=== PATIENT | male | born 1960 | race Caucasian/White ===

== ENCOUNTER 2020-02-29 16:00 | Outpatient (RCR) | payer MEDICAID, SELFPAY ==
--- NOTE | 2020-03-01 12:53 | MHC.PT.DC ---
[facility] [place] [facility] [place] [facility] [place] [facility] [address] Brittny Rome 140 [facility] [phone] F: [phone] F: [phone] F: [phone] F: [phone] Physical Therapy Discharge Report Diagnosis: rotator cuff repair Date of Surgery: 11/08/19 Date of Evaluation: 12/07/19 Date of Discharge: 03/01/20 Treatments to Date: 21 Cancellations to Date: 1 No Shows to Date: 0 Discharge Status: Improved Function Independent with HEP Discharge Summary: The patient has improved in his pain severity and range of motion. He has functional flexion and abduction with occasional compensation with fatigue. Otherwise, he has excellent carryover with cueing for periscapular activation and upper trapezius inhibition. He has progressed as expected regarding his strengthening program. He was educated regarding a safe return to gym program and to avoid heavy overhead lifting to protect the surgical site. He is discharged from this physical therapy plan of care to his home exercise program. Electronically signed by: Kylah Morrow PT, DPT Please sign and return to therapist. Thank you for your referral.
== END 2020-03-01 12:54 | disposition other institution (70) ==
LOC: HO.PT 16:00
PROVIDERS: PCP Family Medicine; Visit Provider Physician Assistant
DX: Z47.89 Encounter for other orthopedic aftercare (principal); Z98.890 Other specified postprocedural states
CPT/HCPCS: 97110; 97530; 99213

== ENCOUNTER → 2020-03-07 12:41 | Outpatient (BNVA) | payer MEDICAID, SELFPAY | PROVIDERS: PCP Family Medicine; Referring Provider Family Medicine; Visit Provider Orthopaedic Surgery | DX: S46.011D Strain of muscle(s) and tendon(s) of the rotator cuff of right shoulder, subsequent encounter (principal) | CPT/HCPCS: 99212 ==

== ENCOUNTER 2020-04-08 08:32 | Emergency (ER) | payer MEDICAID, SELFPAY ==
[2020-04-08 08:37] VITALS: BP 130/80; PULSE 89; RESP 18; TEMP 37.2; O2SAT 98; BMI 31.7
--- NOTE | 2020-04-08 08:48 | XR_ITS ---
EXAMINATION: XR CHEST CLINICAL INFORMATION: Cough, fever COMPARISON: None TECHNIQUE: Portable upright AP view of the chest was obtained. FINDINGS: The heart is normal in size. The vascularity is normal. There is no vascular congestion, lobar or segmental airspace consolidation, or definite groundglass opacity. The costophrenic sulci are clear. The hilar and mediastinal contours are normal. There are mild degenerative changes mid to lower thoracic spine and shoulders. There is a nodular density overlying the mid right base 0.9 cm which may be related to a nipple shadow. Recommend repeat view with nipple markers to confirm. XR/XR chest 1V IMPRESSION: 1. No vascular congestion, airspace consolidation, or effusion. 2. Nodular density right base, possibly nipple shadow. Recommend repeat view with nipple markers.
--- NOTE | 2020-04-08 09:15 | ED.URI ---
HPI - URI/Sore Throat General Chief Complaint: Upper Respiratory Symptoms Stated Complaint: BODYACHES,HEADACHE,COUGHING Time Seen by Provider: 04/08/20 08:48 Source: patient Mode of arrival: ambulatory Limitations: no limitations History of Present Illness HPI Narrative: 59-year-old male with a past medical history of insulin-dependent diabetic here with cough, body aches, chills, headache, nasal congestion x5 days. No shortness of breath or chest pain or vomiting or diarrhea. MD elicited complaint: cough and nasal congestion Onset (ago): day(s) Consistency: constant Severity: mild Description of mucous: clear Able to tolerate fluids by mouth: Yes Exacerbating factors: nothing Relieving factors: nothing Associated symptoms: chills, myalgias, headache, nasal congestion and cough Treatments prior to arrival: none Related Data Home Medications Medication Instructions Recorded Confirmed aspirin 81 mg tablet,delayed 81 mg PO DAILY 02/08/20 release metformin 500 mg tablet 500 mg PO DAILY 02/08/20 Previous Rx's Medication Instructions Recorded levofloxacin 750 mg PO DAILY 5 Days #5 tab 04/08/20 Allergies Allergy/AdvReac Type Severity Reaction Status Date / Time azithromycin Allergy Severe LIP Verified 03/07/20 12:52 [From ZITHROMAX Z-ZENA] SWELLING YELENA Inhibitors Allergy Unknown facial Uncoded 12/27/19 00:00 swelling Review of Systems Review of Systems: Yes all other systems are reviewed and are negative Constitutional: Constitutional: Reports no additional constitutional complaints, Reports body ache(s), Reports chills, Denies fever(s), Reports headache(s) and Denies weakness Eyes: Eyes: Reports no additional eye complaints and Denies change in vision ENT: Reports system reviewed and no additional complaints, except as documented, Denies dizziness, Reports headache(s), Reports nasal congestion, Denies nasal discharge, Denies neck pain and Reports sore throat Cardiovascular: Cardiovascular: Reports no additional cardiovascular complaints, Denies chest pain, Denies leg edema and Denies dyspnea Respiratory: Respiratory: Reports no additional respiratory complaints, Reports cough and Denies dyspnea Gastrointestinal: Gastrointestinal: Reports no additional gastrointestinal complaints, Denies abdominal pain, Denies diarrhea, Denies nausea and Denies vomiting Genitourinary: Genitourinary: Denies urinary incontinence Musculoskeletal: Musculoskeletal: Reports no additional musculoskeletal complaints, Denies back pain, Denies arthralgias, Denies joint swelling, Denies neck pain, Denies numbness and Denies tingling Integumentary/Breasts: Skin/Breast: Reports system reviewed and no additional complaints, except as docu and Denies rash Neurologic: Reports system reviewed and no additional complaints, except as documented, Denies Abnormal speech present, Denies dizziness, Reports headache(s), Denies numbness, Denies tingling and Denies weakness PMFSH Past Medical History Attestation statement: The following information was validated with the patient. Source: old records reviewed and nursing notes reviewed Surgical History History of repair of right rotator cuff (~11/08/19) Social History Social History Smoking Status: Never smoker Advance Directives: Yes Advance Directives on File: Yes Advance Directives Date on File: 02/08/20 Current occupational status: employed Current occupation: [employer] Physical Exam Vital Signs: Vital Signs: Last Vital Signs Temp 99.0 F 04/08/20 08:37 Pulse 89 04/08/20 08:37 Resp 18 04/08/20 08:37 BP 130/80 04/08/20 08:37 Pulse Ox 98 04/08/20 08:37 Body Mass Index 31.7 Const: General: cooperative, healthy appearing, comfortable and no acute distress Orientation/consciousness: patient oriented x3 Limitations: no limitations HENMT: Head: Yes normal to inspection Ears: hearing grossly normal bilaterally General nose exam: Normal external nose present Face and sinus: Yes normal facial exam Mouth: Normal oral and palatal mucosa present Throat: Yes posterior oropharynx normal Eyes: General: appearance normal, both eyes and all related structures Pupils: Equal, round and reactive pupils present Neck: Neck: Yes normal visual inspection Chest: Chest palpation & inspection: normal inspection of the chest Resp: Effort & Inspection: normal respiratory effort Auscultation: clear to auscultation bilaterally Cardio: Rate: regular rate Rhythm: regular rhythm Peripheral pulses: Peripheral pulses 2+ throughout GI: Inspection: Yes normal to inspection Palpation (GI): Soft to palpation and nontender Auscultation: normal bowel sounds Back/Spine/Pelvis: Thoracic/Lumbar Spine: thoracic and lumbar spine normal to inspection Skin: General skin exam: no rashes or lesions noted Neuro: General: patient oriented x3, no focal motor deficits and normal sensation to monofilament Cranial nerves: Yes Equal, round and reactive pupils present Cognition (Neuro): normal cognition Speech: No Abnormal speech present Gait exam (Neuro): Normal gait present Motor exam (neuro): 5/5 motor strength present throughout Extrem: General: Yes normal to inspection Course Course Course Narrative: 59-year-old male here with flu-like symptoms for 5 days. stable vital signs. Will check COVID / flu swab. Will check chest x-ray. 1040- COVID positive. Chest x-ray shows an incidental finding of a potential right lung nodule. Patient was made aware of this and instructed to follow-up with his primary care doctor. Stable saturations, afebrile and well-appearing. Reviewed worrisome signs and symptoms and when to return to the emergency department. Comfortable with discharge home. MDM - URI/Sore Throat MDM Narrative Medical decision making narrative: viral syndrome, COVID-19 infection, influenza, pneumonia Medical Records Attestation: I reviewed the patient's medical records. Lab Data Labs: Lab Results 04/08/20 Range/Units 09:16 Coronavirus (PCR) POSITIVE A (Negative) Influenza Type A (PCR) NEGATIVE (Negative) Influenza Type B (PCR) NEGATIVE (Negative) RSV RNA Qual (PCR) NEGATIVE (Negative) Imaging Data Chest x-ray: Attestation: I personally reviewed and interpreted this imaging study as follows: Radiologist's impression: [place] [id number] XRay Report Signed Patient: Suhas Reynaga#: [id number] : 1Acct:[id number] Age/Sex: 59 / MADM Date: 04/08/20 Loc: HO.ED Attending Dr: Ordering Physician: ARA QURESHI NP Date of Service: 04/08/20 Procedure(s): XR chest 1V Accession Number(s): [id number] cc: ARA QURESHI NP~ EXAMINATION: XR CHEST CLINICAL INFORMATION: Question nodule right base on chest radiograph performed for cough, fever. Repeat view with nipple marker. COMPARISON: Chest radiographs 04/08/2020, CT abdomen 07/07/2017, chest radiographs 06/05/2010 TECHNIQUE: Portable upright AP view of the chest is performed with right nipple marker. FINDINGS: There is a nodular density right base adjacent to coarsening bronchovascular marking not related to the nipple measuring 6 x 7 mm. In retrospect, similar finding is questionably suggested on frontal chest radiograph 06/05/2010. XR/XR chest 1V IMPRESSION: 1. Nodular density not related to nipple right base 6 x 7 mm with smooth margins. Finding is questionably suggested on frontal chest 2010. 2. Suggest nonemergent outpatient noncontrast CT chest to fully characterize. Discharge Plan Discharge Clinical Impression: COVID-19, Bronchitis Patient Disposition: Home, Self-Care Instructions: Acute Bronchitis (ED), COVID-19 (Coronavirus Disease 2019) (ED) Additional Instructions: We have tested you today for COVID 19. Test results take 1-2 days and we will call you with the results negative or positive. Take tylenol or motrin if able as needed for pain or fever. Stay well hydrated with fluids like water, gatorade and/or powerade. Wash hands at home. If living with others try to self isolate if possible. If unable wear a mask around others in your home and wash hands frequently. If COVID test is positive you will need to self isolate for a total of 14 days from when your symptoms started. You may return to work sooner if testing is negative and all symptoms resolved >72 hours. You should return to the emergency department for severe shortness of breath, chest pain or fever which does not respond to both tylenol and motrin at home. Prescriptions: New levofloxacin 750 mg tablet 750 mg PO DAILY 5 Days Qty: 5 RF: 0 Referrals: Ritu Bardales MD [Primary Care Provider] - 2 days Stand Alone Forms: Work/School Release Interventions: ED Discharge Assessment Last Done: 04/08/20 10:29 Discharge Date/Time: 04/08/20 10:29
--- NOTE | 2020-04-08 09:30 | XR_ITS ---
EXAMINATION: XR CHEST CLINICAL INFORMATION: Question nodule right base on chest radiograph performed for cough, fever. Repeat view with nipple marker. COMPARISON: Chest radiographs 04/08/2020, CT abdomen 07/07/2017, chest radiographs 06/05/2010 TECHNIQUE: Portable upright AP view of the chest is performed with right nipple marker. FINDINGS: There is a nodular density right base adjacent to coarsening bronchovascular marking not related to the nipple measuring 6 x 7 mm. In retrospect, similar finding is questionably suggested on frontal chest radiograph 06/05/2010. XR/XR chest 1V IMPRESSION: 1. Nodular density not related to nipple right base 6 x 7 mm with smooth margins. Finding is questionably suggested on frontal chest 2010. 2. Suggest nonemergent outpatient noncontrast CT chest to fully characterize.
[2020-04-08 10:05] LABS: Influenza A PCR NEGATIVE (Negative); Influenza B PCR NEGATIVE (Negative); Resp Syncy Virus RNA Qual PCR NEGATIVE (Negative); SARS COV2 PCR INHOUSE POSITIVE (Negative)
== END 2020-04-08 10:29 | disposition home or self-care (01) ==
PROVIDERS: Nurse Practitioner Family; Emergency Provider Internal Medicine; PCP Family Medicine
DX: U07.1 COVID-19 (principal); J40 Bronchitis, not specified as acute or chronic; M79.10 Myalgia, unspecified site; R05 Cough; R51.9 Headache, unspecified; Z79.899 Other long term (current) drug therapy
CPT/HCPCS: 0241U; 71045; 99283

== ENCOUNTER 2020-12-19 13:58 | Outpatient (REF) | payer MEDICAID, SELFPAY | END 2020-12-19 13:59 | disposition home or self-care (01) | LOC: HO.LAB 13:58 | PROVIDERS: PCP Family Medicine; Visit Provider Internal Medicine | DX: Z20.822 Contact with and (suspected) exposure to COVID-19 (principal) | CPT/HCPCS: C9803; U0003; U0005 ==

== ENCOUNTER → 2021-08-28 13:58 | Outpatient (BNVA) | payer MEDICAID, SELFPAY | PROVIDERS: PCP Family Medicine; Referring Provider Family Medicine; Visit Provider Physician Assistant | DX: Z12.11 Encounter for screening for malignant neoplasm of colon (principal) | CPT/HCPCS: 99202 ==

== ENCOUNTER 2021-12-15 09:25 | Day surgery (SDC) | payer MEDICAID, SELFPAY ==
[2021-12-09 19:34] VITALS: BMI 31.0
--- NOTE | 2021-12-12 10:05 | P.CONAN_ITS ---
Documented by User: Denise Storm NP 12/12/21 10:05 HPI - Anesthesia Eval Consult details Narrative: 60yo M for Colonoscopy PMFSH Active Problems Active Problems: All Active Problems (Updated 12/09/21 @ 19:34 by Lanie Rodriguez RN) S/P rotator cuff repair (Acute) COVID-19 (Acute) Encounter for screening colonoscopy (Acute) Past Medical History Medical History Back pain Diabetes Elevated cholesterol Hypertension Family History Family History Father Diabetes Heart disease Stroke Mother Asthma attack Surgical History Surgical History H/O hand surgery History of esophagogastroduodenoscopy (EGD) History of repair of right rotator cuff (~11/08/19) Hx of colonoscopy Social History Social History Household Members Other:: single Patient Tobacco Use Status: Former Tobacco user Use of substances other than those prescribed or required for medical reasons: No Are you DNR?: No Advance Directives: No Advance Directives Information Provided: Yes Advance Directives on File: No Advance Directives Date on File: 02/08/20 Recently lost weight without trying: No Nutrition Risks: No Nutritional Risk Current occupational status: employed Current occupation: [employer] Meds Allergies Allergy/AdvReac Type Severity Reaction Status Date / Time azithromycin Allergy Severe LIP Verified 08/28/21 14:03 [From ZITHROMAX Z-ZENA] SWELLING YELENA Inhibitors Allergy Unknown facial Uncoded 08/28/21 14:03 swelling Home Medications Medication Instructions Recorded Confirmed Last Taken Type aspirin 81 mg tablet,delayed 81 mg PO DAILY 02/08/20 12/09/21 Unknown History release metformin 500 mg tablet 500 mg PO DAILY 02/08/20 12/09/21 Unknown History amlodipine 5 mg tablet 1 tab PO DAILY 12/09/21 12/09/21 Unknown History atorvastatin 40 mg tablet 1 tab PO BEDTIME 12/09/21 12/09/21 Unknown History insulin glargine 100 unit/mL (3 14 unit subcut DAILY 12/09/21 12/09/21 Unknown History mL) subcutaneous pen (Lantus Solostar U-100 Insulin) Exam Exam Date and Time: December 12, 2021 1005 Height,Weight and Vital Signs: Height 5 ft 9 in Weight 95.254 kg Assessment and Plan Assessment Anesthesia Assessment: Chart Reviewed Documented by User: Tiarra Oconnell MD 12/15/21 11:24 [facility] Past Medical History Medical History Back pain Diabetes Elevated cholesterol Hypertension Family History Family History Father Diabetes Heart disease Stroke Mother Asthma attack Surgical History Surgical History H/O hand surgery History of esophagogastroduodenoscopy (EGD) History of repair of right rotator cuff (~11/08/19) Hx of colonoscopy History of Problems with Anesthesia: No Social History Social History Household Members Other:: single Patient Tobacco Use Status: Former Tobacco user Use of substances other than those prescribed or required for medical reasons: No Are you DNR?: No Advance Directives: No Advance Directives Information Provided: Yes Advance Directives on File: No Advance Directives Date on File: 02/08/20 Recently lost weight without trying: No Nutrition Risks: No Nutritional Risk Current occupational status: employed Current occupation: [employer] Meds Allergies Allergy/AdvReac Type Severity Reaction Status Date / Time azithromycin Allergy Severe LIP Verified 08/28/21 14:03 [From ZITHROMAX Z-ZENA] SWELLING YELENA Inhibitors Allergy Unknown facial Uncoded 08/28/21 14:03 swelling Home Medications Medication Instructions Recorded Confirmed Last Taken Type aspirin 81 mg tablet,delayed 81 mg PO DAILY 02/08/20 12/09/21 Unknown History release metformin 500 mg tablet 500 mg PO DAILY 02/08/20 12/09/21 Unknown History amlodipine 5 mg tablet 1 tab PO DAILY 12/09/21 12/09/21 Unknown History atorvastatin 40 mg tablet 1 tab PO BEDTIME 12/09/21 12/09/21 Unknown History insulin glargine 100 unit/mL (3 14 unit subcut DAILY 12/09/21 12/09/21 Unknown History mL) subcutaneous pen (Lantus Solostar U-100 Insulin) Exam Airway Mallampati Class: II TM Dist: >3cm Neck ROM: Full Loose/Missing/Broken Teeth: Yes, Upper and Lower Heart: RRR Lungs: CTA Assessment and Plan Assessment Anesthesia Assessment: Anesthesia Plan Discussed Final Anesthetic Review History of Problems with Anesthesia: No NPO: Yes ASA Class: II Final Preanesthetic Review: Meds/Allgs Chart Reviewed, Consent Obtained/Reviewed and Anes Risks/Benef Reviewed Patient Risk: Low Procedure Risk: Low Anesthetic Plan Anesthetic Plan: MAC: Disposition: Standard PACU
[2021-12-15 10:12] VITALS: BP 137/81; PULSE 67; RESP 18; TEMP 36.6; O2SAT 98
[2021-12-15 10:13] LABS: Glucose, Whole Blood 157 mg/dL (60-115)
[2021-12-15] MEDS: Lactated Ringers 1,000 ML 100 ML IVCONT (10:21)
--- NOTE | 2021-12-15 11:06 | MHC.SHP ---
Pre-Procedural Eval Section A Date of Service: 12/15/21 The patient is an INPATIENT: No The History & Physical has been completed within 30 days and I have reviewed it.: No Section B Chief Complaint: screening Details of Present Illness: Colon cancer screening Relevant Family History (Specify if Yes): No Relevant Social History: Tobacco Use (Former smoker) Present Medications: see Short Stay Collaborative assessment Medical History: Significant History (Hypertension, diabetes mellitus) History of Previous Operations: Relevant previous surgery/procedure and date(s) (H/O hand surgery History of esophagogastroduodenoscopy (EGD) History of repair of right rotator cuff (~11/08/19) Hx of colonoscopy) Allergies: Allergies Allergy/AdvReac Type Severity Reaction Status Date / Time azithromycin Allergy Severe LIP Verified 08/28/21 14:03 [From ZITHROMAX Z-ZENA] SWELLING YELENA Inhibitors Allergy Unknown facial Uncoded 08/28/21 14:03 swelling Review of Systems Sugical H&P ROS: Negative: Constitution, Cardiovascular, Respiratory and Gastrointestinal Exam Surgical H&P Exam: Normal: Heart, Normal: Lungs, Normal: Extremities and Normal: Abdomen Plan Diagnosis/Plan: Unchanged I have reviewed the history and physical and performed a pertinent physical examination on my patient. No changes have occurred unless specified.
--- NOTE | 2021-12-15 11:11 | W.PM.OPN ---
Operative Note Operative Note Date of Service: 12/15/21 Narrative: Pre-op diagnosis: Colon cancer screening, history of colon polyps Post-op diagnosis: other (Colon polyps, diverticulosis, hemorrhoids) Procedure: COLONOSCOPY TILL CECUM WITH BIOPSIES AND SNARE POLYPECTOMY Consent: Indications for the procedure and potential complications of bleeding, perforation, reaction to medications and missed diagnosis were discussed with the patient and informed consent was obtained. Instrument: Olympus CF H 190 L variable stiffness adult colonoscope Monitoring: Vital signs and clinical assessment, intermittent blood pressure monitoring, continuous EKG monitoring, Pulse oximetry and Carbon Dioxide monitoring were done throughout the procedure. Colon withdrawl time was 25 minutes. Procedure: The patient was placed in the left lateral decubitis position and pre-procedure medications were administered. After a digital rectal examination of the ano-rectum, the video colonoscope was inserted into the rectum and advanced through the colon to the cecum. The colonoscope was slowly withdrawn in a retrograde panoramic fashion and the colon mucosa was carefully examined including a retroflexed view of the rectum. Findings and interventions are described below. Procedure Difficulty: Without difficulty Findings: Terminal Ileum: Not evaluated Cecum: Normal Ascending Colon: Moderate diverticulosis throughout the entire colon Transverse Colon: Three 4-8 mm sessile polyps removed with a cold bx and a cold snare. Moderate diverticulosis throughout the entire colon Descending Colon: Moderate diverticulosis Sigmoid Colon: Moderate diverticulosis Rectum: Normal Ano-rectum: Moderate internal hemorrhoids Colon preparation: Excellent Impression and Post Procedure Diagnosis: Colonoscopy Findings: Three small polyps removed Moderate diverticulosis seen in the entire colon Moderate hemorrhoids on retroflexed exam. Plan: Await pathology results Patient has an appointment on 12/31/21 in the GI Clinic with BOWEN Tomlinson . Repeat Colonoscopy interval based on path results - in 3-5 years if polyps are adenomatous and 10 years if polyps are hyperplastic. Above findings were reviewed with the patient and colon polyps and diverticulosis handouts were given in the discharge area Surgeon: Edwina Sharma MD Anesthesia: MAC (Dr Oconnell) Was an [employer] Targeting Supervisor used for this Procedure?: Yes [employer] Targeting Supervisor: Cherry Irvin Estimated blood loss (mL): 0 Pathology: other (A. transverse colon polyps (3)) Condition: stable Disposition: PACU
[2021-12-15 11:51] VITALS: BP 102/62; PULSE 66; RESP 20; TEMP 36.4; O2SAT 99
[2021-12-15 12:06] VITALS: BP 104/59; PULSE 61; RESP 18; O2SAT 98
[2021-12-15 12:21] VITALS: BP 122/68; PULSE 46; RESP 18; O2SAT 98
[2021-12-15 12:36] VITALS: BP 124/64; PULSE 55; RESP 18; O2SAT 98
== END 2021-12-15 12:59 | disposition home or self-care (01) ==
PROVIDERS: PCP Family Medicine; Visit Provider Internal Medicine Gastroenterology
PROC: 0DJD8ZZ Inspection of Lower Intestinal Tract, Via Natural or Artificial Opening Endoscopic (ICD-10-PCS; CPT 45378; principal; 2021-12-15 11:40)
DX: Z12.11 Encounter for screening for malignant neoplasm of colon (principal); Z86.010 Personal history of colon polyps; D12.3 Benign neoplasm of transverse colon; K57.30 Diverticulosis of large intestine without perforation or abscess without bleeding; K64.8 Other hemorrhoids; I10 Essential (primary) hypertension; E78.00 Pure hypercholesterolemia, unspecified; E11.9 Type 2 diabetes mellitus without complications; Z79.4 Long term (current) use of insulin; Z79.82 Long term (current) use of aspirin; Z88.1 Allergy status to other antibiotic agents; Z88.8 Allergy status to other drugs, medicaments and biological substances; Z87.891 Personal history of nicotine dependence
CPT/HCPCS: 45385; 45380; 82947; 88305

== ENCOUNTER 2023-01-25 09:55 | Outpatient (REF) | payer MEDICAID, SELFPAY ==
--- NOTE | ~2023-01-25 | XR_ITS ---
EXAMINATION: XR SHOULDER, LEFT CLINICAL INFORMATION: Anterior left shoulder pain on and off for months COMPARISON: None available. TECHNIQUE: 5 views of the left shoulder. FINDINGS: Mild degenerative changes in the acromioclavicular joint. Mild degenerative changes in the glenohumeral joint. No abnormal soft tissue calcifications identified adjacent to the humeral head XR/XR shoulder LT min 2V IMPRESSION: Mild degenerative changes.
== END 2023-01-25 09:56 | disposition home or self-care (01) ==
LOC: HO.HHCX 09:55
PROVIDERS: Visit Provider Family Medicine
DX: M25.512 Pain in left shoulder (principal)
CPT/HCPCS: 73030

== ENCOUNTER 2023-03-19 09:13 | Outpatient (REF) | payer OTHER, SELFPAY | END 2023-03-19 09:14 | disposition home or self-care (01) | LOC: HO.HOSX 09:13 | PROVIDERS: PCP Family Medicine; Visit Provider Orthopaedic Surgery | DX: Z13.89 Encounter for screening for other disorder (principal) ==

== ENCOUNTER 2023-03-19 09:13 | Outpatient (AMB) | payer OTHER, SELFPAY ==
--- NOTE | 2023-03-19 09:22 | A.OFFVIS_ITS ---
Intake Vital Signs 03/19/23 09:23 Height 5 ft 9 in Weight 197 lb BMI 29.1 Intake Visit Reasons: Newprob-Left shoulder pain Intake Note: Suhas is a 62 year old right hand dominant male who presents today for a new problem visit with complaints of left shoulder pain. Hx of right RTC Repair 11/08/2019. Patient reports that he has had ongoing shoulder pain for about 2 months now. He cannot recall any direct injury. He is active in the gym. He has sharp pain with certain movements but cannot identify which movements trigger the pain. Denies numbness and tingling. He does not take anything for his pain. Has not tried physical therapy or cortisone. Allergies azithromycin [From ZITHROMAX Z-ZENA] Allergy (Severe, Verified 08/28/21 14:03) LIP SWELLING YELENA Inhibitors Allergy (Unknown, Uncoded 08/28/21 14:03) facial swelling HPI Newprob-Left shoulder pain HPI Details Suhas is a 62 year old Diabetic man who presents with complaints of ~2 months left shoulder pain. He reports having pain with shoulder movement, which he describes as sharp , and says he is unsure what exactly triggers his pain. He says this pain is similar to his right shoulder prior to surgery. He stays active at the gym several times a week. He says his pain somewhat affects his exercise activities, but he denies any increased pain at night. He denies any falls or known injury. He denies any prior treatment, including OTC medication. He has a hx of right RTC repair, DOS: 11/08/19. [facility] Medical History (Updated 03/19/23 @ 10:09 by Rashel Hinton) Back pain Diabetes Hypertension Elevated cholesterol Surgical History History of esophagogastroduodenoscopy (EGD) Hx of colonoscopy H/O hand surgery History of repair of right rotator cuff (~11/08/19) Family History Father Diabetes Heart disease Stroke Mother Asthma attack Social History Household Members Other:: single Patient Tobacco Use Status: Former Tobacco user Advance Directives Date on File: 02/08/20 Current occupational status: employed Current occupation: [employer]- [employer] Review of Systems Const All systems reviewed & are unremarkable except as noted in HPI and below Physical Exam Vital Signs: BMI result Body Mass Index 29.1 Const General: no acute distress, alert and awake Orientation/consciousness: patient oriented x3 HEENT Head: Yes normocephalic and Yes atraumatic Eyes EOM: EOMs intact bilaterally Resp Effort & Inspection: normal respiratory effort and able to speak in complete sentences Cardio Jugular venous distension: no JVD Skin General skin exam: turgor normal Rashes: no rashes Neuro General: patient oriented x3 Extrem Other: Left Shoulder: neg EC neg H/N 45/90/130/L5 neg lift off Psych Appearance: grossly normal Affect: normal affect Attitude: cooperative Results Reviewed Results Reviewed: I personally reviewed relevant radiographs Assessment & Plan Assessment & Plan (1) Impingement of left shoulder: Code(s): M25.812 - Other specified joint disorders, left shoulder Plan: This is a 62 year old man with left shoulder impingement. He has mild pain occasionally. He denies any prior treatment. He stays active at the gym and find s himself limited by pain recently. I discussed his diagnosis and treatment options. His pain is mostly tolerable and he is not particularly limited in his activities. I recommend NSAIDs and activity modification. I ordered PT for frannie- scapular strengthening and recommend using Ibuprofen at night. He can follow up prn. If his symptoms persist or worsen he can follow up to discuss injections. (2) Diabetes: Code(s): E11.9 - Type 2 diabetes mellitus without complications Plan Scribed for Richard Bernal MD by Rashel Hinton, medical office supervisor, on 03/19/23 at 10:10 AM, EST. Orders: Orders XR shoulder LT min 2V 03/19/23 M25.519 - Pain in unspecified shoulder Coding Level of Care Code Est Pt Level 3 (27587) Diagnoses Impingement of left shoulder M25.812 Diabetes E11.9
[2023-03-19 09:23] VITALS: BMI 29.1
== END 2023-03-19 10:14 | disposition home or self-care (01) ==
PROVIDERS: PCP Family Medicine; Visit Provider Orthopaedic Surgery
DX: M25.812 Other specified joint disorders, left shoulder (principal); E11.9 Type 2 diabetes mellitus without complications
CPT/HCPCS: 99213

== ENCOUNTER 2024-01-04 08:05 | Outpatient (REF) | payer OTHER, SELFPAY ==
[2024-01-04 11:57] LABS: Alanine Aminotransferase 13 U/L (0-40); Albumin Level 4.1 g/dL (3.5-5.0); Alkaline Phosphatase 49 U/L (39-117); Anion Gap 10 (12-20); Aspartate Amino Transferase 14 U/L (5-37); Bilirubin Direct 0.1 mg/dL (0.0-0.5); Bilirubin Total 0.4 mg/dL (0.0-1.0); Blood Urea Nitrogen 13 mg/dL (9-16); Calcium 9.5 mg/dL (8.4-10.2); Carbon Dioxide 28 mmol/L (22-29); Chloride 107 mmol/L (96-108); Cholesterol 195 mg/dL (<200); Estimated Glomerular Filt Rate > 60; Glucose Random 139 mg/dL (60-115); HDL Cholesterol 50 mg/dL (>40); LDL Cholesterol Calculated 123 mg/dL (<100); Potassium 4.1 mmol/L (3.3-5.1); Sodium 141 mmol/L (135-145); Total Protein 7.5 g/dL (6.5-8.0); Triglycerides 111 mg/dL (<150)
[2024-01-04 12:08] LABS: Creatinine Urine 197.57 mg/dL; Microalbum/Creatinine Ratio Ur 10.6 ug/mg cr (<30)
== END 2024-01-04 08:06 | disposition home or self-care (01) ==
LOC: HO.HHCL 08:05
PROVIDERS: Visit Provider Family Medicine
DX: E11.65 Type 2 diabetes mellitus with hyperglycemia (principal)
CPT/HCPCS: 36415; 80048; 80061; 80076; 82043; 82570

== ENCOUNTER 2024-02-25 08:09 | Outpatient (REF) | payer OTHER, SELFPAY ==
[2024-02-25 13:42] LABS: Alanine Aminotransferase 19 U/L (0-40); Alkaline Phosphatase 48 U/L (39-117); Aspartate Amino Transferase 17 U/L (5-37); Bilirubin Direct 0.2 mg/dL (0.0-0.5); Bilirubin Total 0.5 mg/dL (0.0-1.0); Cholesterol 174 mg/dL (<200); HDL Cholesterol 48 mg/dL (>40); LDL Cholesterol Calculated 108 mg/dL (<100); Total Protein 7.2 g/dL (6.5-8.0); Triglycerides 90 mg/dL (<150)
== END 2024-02-25 08:10 | disposition home or self-care (01) ==
LOC: HO.CHCLDS 08:09
PROVIDERS: Visit Provider Family Medicine
DX: E78.00 Pure hypercholesterolemia, unspecified (principal)
CPT/HCPCS: 36415; 80061; 80076

== ENCOUNTER 2024-04-26 11:06 | Outpatient (RCR) | payer OTHER, SELFPAY | END 2025-02-28 12:42 | disposition home or self-care (01) | LOC: HO.PT 11:06 | PROVIDERS: PCP Family Medicine; Visit Provider Family Medicine | DX: M54.50 Low back pain, unspecified (principal) | CPT/HCPCS: 97110; 97140; 97161 ==

== ENCOUNTER 2024-07-03 17:41 | Emergency (ER) | payer OTHER, SELFPAY ==
[2024-07-03 18:21] VITALS: BP 123/74; PULSE 64; RESP 16; TEMP 37.2; O2SAT 98; BMI 28.4
--- NOTE | 2024-07-03 18:23 | ECG_ITS ---
Test Reason : abnormal labs Blood Pressure : */* mmHG Vent. Rate : 56 BPM Atrial Rate : 56 BPM P-R Int : 140 ms QRS Dur : 92 ms QT Int : 398 ms P-R-T Axes : 67 10 27 degrees QTcB Int : 384 ms Sinus bradycardia with marked sinus arrhythmia Otherwise normal ECG No previous ECGs available Referred By: Natasha Dexter Electronically Signed By: GURMEET HEBERT
[2024-07-03 18:50] LABS: MANUAL DIFF FLAG NO
--- NOTE | 2024-07-03 18:50 | ED_ITS ---
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 the dose of metformin to 500 mg twice a day patient comes here now blood sugar was more than 300 today no fever no nausea no vomiting Related Data Home Medications ?Medication ?Instructions ?Recorded ?Confirmed metformin 500 mg tablet 500 mg PO DAILY 02/08/20 12/09/21 amlodipine 5 mg tablet 1 tab PO DAILY 12/09/21 12/09/21 atorvastatin 40 mg tablet 1 tab PO BEDTIME 12/09/21 12/09/21 dulaglutide 1.5 mg/0.5 mL mg subcut QWEEK 03/19/23 subcutaneous pen injector (Trulicity) emtricitabine 200 mg-tenofovir 1 tab PO QAM 03/19/23 alafenamide fumarate 25 mg tablet (Descovy) magnesium oxide 500 mg PO BEDTIME 03/19/23 Allergies Allergy/AdvReac Type Severity Reaction Status Date / Time azithromycin Allergy Severe LIP Verified 07/03/24 18:23 [From ZITHROMAX Z-ZENA] SWELLING YELENA Inhibitors Allergy Unknown facial Uncoded 08/28/21 14:03 swelling Review of Systems 2 Review of Systems: Yes all other systems are reviewed and are negative [facility] Past Medical History Medical History (Updated 07/03/24 @ 22:38 by Levi Alejandro MD) Back pain Diabetes Hypertension Elevated cholesterol Surgical History History of esophagogastroduodenoscopy (EGD) Hx of colonoscopy H/O hand surgery History of repair of right rotator cuff (~11/08/19) Family History Family History Father Diabetes Heart disease Stroke Mother Asthma attack Social History Social History Household Members Other:: single Patient Tobacco Use Status: Former Tobacco user Advance Directives: No Advance Directives Information Provided: No Advance Directives Date on File: 02/08/20 Current occupational status: employed Current occupation: [employer] Physical Exam ED Vital Signs: Vital Signs - 24 hr 07/03/24 18:21 Temperature 98.9 F Pulse Rate 64 Respiratory Rate 16 Blood Pressure 123/74 Pulse Oximetry 98 Oxygen Delivery Method Room Air BMI result Body Mass Index 28.4 Appearance: Alert. Oriented X3. No acute distress. Eyes: PERRLA, No Nystagmus ENT: Pharynx normal. Oral Mucosa moist Neck: Normal inspection. Neck supple. CVS: Normal heart rate and rhythm. Pulses normal. Respiratory: No respiratory distress. Equal air entry bilateral, no wheezing/rales/rhonchi Abdomen: Soft and nontender. Bowel sounds are present, no mass palpable, no CVA tenderness Skin: Skin warm and dry. Normal skin color. Normal skin turgor. Extremities: No lower extremity edema. No calf tenderness Neuro: Oriented X 3. No motor deficit. No sensory deficit.No cerebellar signs , cranial nerves II-XII intact Course Course Course Narrative: This is a Rapid Medical Examination (RME) performed by Faby Dexter PA-C in triage. Full HPI, ROS, assessment and treatment plan per primary provider in the Main ED. 63 yo male hx T2DM here for eval of elevated glucose > 450 at home. Patient states he was taken off insulin 1 year ago. Has been taking oral metformin. Reports associated headache, dizziness, weakness, palpitations. no N/V abd pain. 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 regarding the future course Lab Data [facility] Lab Attestation statement: I reviewed the patient's lab results. 07/03/24 18:45 02/24/25 18:45 Labs: Lab Results 07/03/24 07/03/24 07/03/24 Range/Units 18:39 18:45 18:53 WBC 6.2 (4.8-10.8) X10*3/uL RBC 4.43 L (4.60-5.80) X10*6/uL Hgb 12.6 L (14.0-18.0) g/dl Hct 35.8 L (42.0-52.0) % MCV 80.8 (80.0-98.0) fL MCH 28.4 (27.0-33.0) pg MCHC 35.2 (31.0-36.0) g/dl RDW 12.3 (11.0-16.0) % Plt Count 133 L (160-400) X10*3/uL MPV 11.5 (9.4-12.4) fL Immature Gran % (Auto) 0.2 (0.0-0.4) % Neut % (Auto) 55.8 (45-73) % Lymph % (Auto) 33.3 (20-40) % Young % (Auto) 7.8 (2-11) % Eos % (Auto) 2.3 (0-4) % Baso % (Auto) 0.6 (0-2) % Lymph # (Auto) 2.1 (1.2-4.9) X10*3/uL Young # (Auto) 0.5 (0.1-1.2) X10*3/uL Eos # (Auto) 0.1 (0.0-0.4) X10*3/uL Baso # (Auto) 0.0 (0.0-0.2) X10*3/uL Abs Immat Gran (auto) 0.01 (0.00-0.03) X10*3/uL Absolute Neuts (auto) 3.5 (2.0-8.3) x10*3/uL Absolute Nucleated RBC 0.000 (0.0-0.012) X10*3/uL Nucleated RBC % (auto) 0.0 (0.0-0.2) /100WBC VBG pH 7.42 (7.32-7.43) VBG pCO2 39 mmHg VBG pO2 52 mmHg VBG HCO3 26 (22-26) mmol/L VBG O2 Saturation 84.0 % VBG Base Excess 1.9 mmol/L Sodium 138 (135-145) mmol/L Potassium 4.0 (3.3-5.1) mmol/L Chloride 106 (96-108) mmol/L Carbon Dioxide 25 (22-29) mmol/L Anion Gap 11 L (12-20) BUN 16 (9-16) mg/dL Creatinine 1.31 (0.5-1.4) mg/dL Estim Creat Clear Calc 63.1 Estimated GFR 55 POC Glucose 313 H (60-115) mg/dL Random Glucose 311 H (60-115) mg/dL Calcium 9.1 (8.4-10.2) mg/dL Magnesium 1.6 (1.6-2.6) mg/dL Total Bilirubin 0.4 (0.0-1.0) mg/dL AST 20 (5-37) U/L ALT 20 (0-40) U/L Alkaline Phosphatase 68 (39-117) U/L Troponin I High Sens 3.2 (<3.5-35.0) ng/L Total Protein 7.6 (6.5-8.0) g/dL Albumin 3.9 (3.5-5.0) g/dL Lipase 26 (8-78) U/L Beta-Hydroxybutyrate 0.07 (0.02-0.27) mmol/L Urine Color Yellow Urine Appearance Clear Urine pH 5.5 (5.0-9.0) Ur Specific Statham >= 1.030 H (1.005-1.025) Urine Protein Trace (Neg-Trace) mg/dL Urine Glucose (UA) >=1000 H (Negative) mg/dL Urine Ketones Trace (Negative) mg/dL Urine Blood Negative (Negative) Urine Nitrite Negative (Negative) Ur Leukocyte Esterase Negative (Negative) Urine RBC 0-2 (0-2) /HPF Urine WBC 0-5 (0-5) /HPF Ur Squamous Epith Cells 0-2 (0-2) /HPF Urine Bacteria None Seen (None Seen) Hyaline Casts 0-2 (0-2) /LPF 07/03/24 Range/Units 21:41 WBC (4.8-10.8) X10*3/uL RBC (4.60-5.80) X10*6/uL Hgb (14.0-18.0) g/dl Hct (42.0-52.0) % MCV (80.0-98.0) fL MCH (27.0-33.0) pg MCHC (31.0-36.0) g/dl RDW (11.0-16.0) % Plt Count (160-400) X10*3/uL MPV (9.4-12.4) fL Immature Gran % (Auto) (0.0-0.4) % Neut % (Auto) (45-73) % Lymph % (Auto) (20-40) % Young % (Auto) (2-11) % Eos % (Auto) (0-4) % Baso % (Auto) (0-2) % Lymph # (Auto) (1.2-4.9) X10*3/uL Young # (Auto) (0.1-1.2) X10*3/uL Eos # (Auto) (0.0-0.4) X10*3/uL Baso # (Auto) (0.0-0.2) X10*3/uL Abs Immat Gran (auto) (0.00-0.03) X10*3/uL Absolute Neuts (auto) (2.0-8.3) x10*3/uL Absolute Nucleated RBC (0.0-0.012) X10*3/uL Nucleated RBC % (auto) (0.0-0.2) /100WBC VBG pH (7.32-7.43) VBG pCO2 mmHg VBG pO2 mmHg VBG HCO3 (22-26) mmol/L VBG O2 Saturation % VBG Base Excess mmol/L Sodium (135-145) mmol/L Potassium (3.3-5.1) mmol/L Chloride (96-108) mmol/L Carbon Dioxide (22-29) mmol/L Anion Gap (12-20) BUN (9-16) mg/dL Creatinine (0.5-1.4) mg/dL Estim Creat Clear Calc Estimated GFR POC Glucose 211 H (60-115) mg/dL Random Glucose (60-115) mg/dL Calcium (8.4-10.2) mg/dL Magnesium (1.6-2.6) mg/dL Total Bilirubin (0.0-1.0) mg/dL AST (5-37) U/L ALT (0-40) U/L Alkaline Phosphatase (39-117) U/L Troponin I High Sens (<3.5-35.0) ng/L Total Protein (6.5-8.0) g/dL Albumin (3.5-5.0) g/dL Lipase (8-78) U/L Beta-Hydroxybutyrate (0.02-0.27) mmol/L Urine Color Urine Appearance Urine pH (5.0-9.0) Ur Specific Statham (1.005-1.025) Urine Protein (Neg-Trace) mg/dL Urine Glucose (UA) (Negative) mg/dL Urine Ketones (Negative) mg/dL Urine Blood (Negative) Urine Nitrite (Negative) Ur Leukocyte Esterase (Negative) Urine RBC (0-2) /HPF Urine WBC (0-5) /HPF Ur Squamous Epith Cells (0-2) /HPF Urine Bacteria (None Seen) Hyaline Casts (0-2) /LPF Discharge Plan Discharge Clinical Impression: Diabetes mellitus with hyperglycemia Patient Disposition: Home, Self-Care Instructions: Diabetic Hyperglycemia (ED) Additional Instructions: Drink plenty of fluids Follow up with your automatic spinning lathe operator tomorrow Prescriptions: No Action atorvastatin 40 mg tablet 1 tab PO BEDTIME amlodipine 5 mg tablet 1 tab PO DAILY metformin 500 mg tablet 500 mg PO DAILY Trulicity 1.5 mg/0.5 mL pen injector subcut QWEEK Descovy 200-25 mg tablet 1 tab PO QAM magnesium oxide 250 mg magnesium tablet 500 mg PO BEDTIME Print Language: Maltese
[2024-07-03 18:52] LABS: Appearance Urine Clear; Color Urine Yellow; Glucose Urine UA >=1000 mg/dL (Negative); Leukocyte Esterase Urine Negative (Negative); Nitrite Urine Negative (Negative); PH 5.5 (5.0-9.0); Specific Gravity - Urine >= 1.030 (1.005-1.025); UMIC TRIGGER UACC YES; Urine Blood Negative (Negative); Urine Ketones Trace mg/dL (Negative); Urine Protein Trace mg/dL (Neg-Trace)
[2024-07-03 18:54] LABS: Bacteria Urine None Seen (None Seen); Basophils Percent Auto 0.6 % (0-2); Eosinophils Absolute Auto 0.1 X10*3/uL (0.0-0.4); Eosinophils Percent Auto 2.3 % (0-4); Hematocrit 35.8 % (42.0-52.0); Hemoglobin 12.6 g/dl (14.0-18.0); Hyaline Casts Urine 0-2 /LPF (0-2); Imm Gran Abs Auto 0.01 X10*3/uL (0.00-0.03); Imm Gran Pct Auto 0.2 % (0.0-0.4); Lymphocytes Absolute Auto 2.1 X10*3/uL (1.2-4.9); Lymphocytes Percent Auto 33.3 % (20-40); Mean Corpuscular HGB Conc 35.2 g/dl (31.0-36.0); Mean Corpuscular Hemoglobin 28.4 pg (27.0-33.0); Mean Corpuscular Volume 80.8 fL (80.0-98.0); Mean Platelet Volume 11.5 fL (9.4-12.4); Monocytes Absolute Auto 0.5 X10*3/uL (0.1-1.2); Monocytes Percent Auto 7.8 % (2-11); Neutrophils Absolute Auto 3.5 x10*3/uL (2.0-8.3); Neutrophils Percent Auto 55.8 % (45-73); Platelet Count 133 X10*3/uL (160-400); RBC Urine 0-2 /HPF (0-2); Red Blood Count 4.43 X10*6/uL (4.60-5.80); Red Cell Distribution Width 12.3 % (11.0-16.0); Squamous Epithelial Cell Urine 0-2 /HPF (0-2); WBC Urine 0-5 /HPF (0-5); White Blood Count 6.2 X10*3/uL (4.8-10.8)
[2024-07-03 19:11] LABS: Alanine Aminotransferase 20 U/L (0-40); Albumin Level 3.9 g/dL (3.5-5.0); Anion Gap 11 (12-20); Aspartate Amino Transferase 20 U/L (5-37); Beta-Hydroxybutyrate 0.07 mmol/L (0.02-0.27); Bilirubin Total 0.4 mg/dL (0.0-1.0); Blood Urea Nitrogen 16 mg/dL (9-16); Calcium 9.1 mg/dL (8.4-10.2); Carbon Dioxide 25 mmol/L (22-29); Chloride 106 mmol/L (96-108); Creatinine Clr Calc Pharmacy 63.1; Estimated Glomerular Filt Rate 55; Glucose Random 311 mg/dL (60-115); Lipase 26 U/L (8-78); Magnesium 1.6 mg/dL (1.6-2.6); Sodium 138 mmol/L (135-145); Total Protein 7.6 g/dL (6.5-8.0)
[2024-07-03 19:12] LABS: Troponin-I High Sensitivity 3.2 ng/L (<3.5-35.0)
[2024-07-03 19:16] LABS: Alkaline Phosphatase 68 U/L (39-117)
[2024-07-03 19:40] LABS: Venous Blood Gas Refer to POC result
[2024-07-03 19:40] LABS: VBG Base Excess 1.9 mmol/L; VBG HCO3 26 mmol/L (22-26); VBG pCO2 39 mmHg; VBG pH 7.42 (7.32-7.43); VBG pO2 52 mmHg
[2024-07-03 21:17] LABS: Glucose, Whole Blood 313 mg/dL (60-115)
--- NOTE | 2024-07-03 21:42 | PC.NURSE ---
Patient states that he hasn't eaten since 5pm, wanted glucose checked. POC Glucose 211.
[2024-07-03 21:45] LABS: Glucose, Whole Blood 211 mg/dL (60-115)
--- NOTE | 2024-07-03 22:17 | PC.NURSE ---
States that he hasn't eaten since 5pm today. Eating saltine crackers, frustrated with wait in ED.
[2024-07-03] MEDS: Insulin Glargine,Hum.rec.anlog 100 UNIT/ML 10 ML VIAL 10 UNIT SUBCUT (22:55)
[2024-07-03 22:58] VITALS: BP 123/74; PULSE 64; RESP 16; TEMP 37.2; O2SAT 98
== END 2024-07-03 23:09 | disposition home or self-care (01) ==
PROVIDERS: Physician Assistant Medical; Emergency Provider Internal Medicine; PCP Family Medicine
DX: E11.65 Type 2 diabetes mellitus with hyperglycemia (principal); R79.89 Other specified abnormal findings of blood chemistry; R00.1 Bradycardia, unspecified; I49.8 Other specified cardiac arrhythmias; Z87.891 Personal history of nicotine dependence; Z79.84 Long term (current) use of oral hypoglycemic drugs; Z79.899 Other long term (current) drug therapy
CPT/HCPCS: 36415; 80053; 81001; 82010; 82803; 82947; 83690; 83735; 84484; 85025; 93005; 99284

== ENCOUNTER → 2024-07-03 18:23 | Outpatient (BNV) | payer OTHER, SELFPAY | PROVIDERS: Emergency Provider Internal Medicine; PCP Family Medicine; Visit Provider Internal Medicine | DX: I49.9 Cardiac arrhythmia, unspecified (principal) | CPT/HCPCS: 93010 ==

== ENCOUNTER 2024-11-08 08:21 | Outpatient (REF) | payer OTHER, SELFPAY ==
--- OUTSIDE RECORDS SUMMARY | 2024-11-08 08:24 | XMS_ITS | Encounter Summary ---
Author Organization [employer] Address [address] [place] [address] [address] [place] [address] Care Team Providers Care Building Tech Name Role Phone Ritu Bardales MD Primary Care Provider [phone] Haley Clakr PharmD Unavailable Richard Bernal MD Unavailable Sun Pak OD Unavailable Edwina Sharma MD Unavailable [phone] Ruben Oconnor Unavailable Encounter Details Date Type Department Care Team (Late st Contact Info) Description 09/10/2022 Abstract [facility] [address] [place], [place] [phone] Ritu Bardales MD [address] [place], [place] [phone] Social History Tobacco Use Types Packs/Day Years Used Date Smoking Tobacco: Never Smokeless Tobacco: Never Depression Answer Date Recorded Patient Health Questionnaire-9 Score 0 06/08/2022 Depression Answer Date Recorded Patient Health Questionnaire-2 Score 0 06/08/2022 Sex and Gender Information Value Date Recorded Sex Assigned at Male 03/09/2022 10:16 AM EDT Legal Sex Male 10:16 AM EDT Gender Identity Male 03/09/2022 10:16 AM EDT Sexual Orientation Straight 03/09/2022 10 :16 AM EDT COVID-19 Exposure Response Date Recorded In the last 10 days, have yo u been in contact with someone who was confirmed or suspected to have Coronavirus/COVID-19? No / Unsure 09/10/2022 11:35 AM EDT documented as of this encounter Plan of Treatment Upcoming Encounters Date Type Department Care Team (Late st Contact Info) Description 12/04/2024 9:00 AM EDT Medication Management [facility] [address] [place] [phone] Haley Clark PharmD [address] [place] [phone] 01/22/2025 9:00 AM EDT Office Visit [facility] [address] [place] [phone] Ritu Bardales MD [address] [place] [phone] documented as of this encounter Goals Goal Patient Goal Type Associated Problems Recent Progress Patient-Stated? Author Hemoglobin A1c < 7 Result Component 8.7(09/04/2024 9:33 AM EDT) No Haley Clark PharmD documented as of this encounter Visit Diagnoses Not on filedocumented in this encounter Additional Health Concerns Assessment Noted Time PHQ-9 Depression Total Score: 0 06/08/19 23 9:21 AM EST documented as of this encounter Care Teams Building Tech Relationship Specialty Start Date End Date Ritu Bardales MD [address] [place] [phone] PCP - General Family Medicine 05/10/18 Haley Clark, PharmD [address] [place] [address] Pharmacist Internal Medicine 06/25/22 Richard Bernal MD [address] [place] [address] Orthopaedic Surgery 05/07/24 Sun Pak OD [address] [place] [address] Optometry 05/07/24 Edwina Sharma MD [address] [place] [address] Drive 3rd [place] [address] Gastroenterology 05/07/24 Ruben Oconnor [address] [place] [phone] Orthopaedic Surgery 07/18/24 documented as of this encounter
[2024-11-08 12:32] LABS: Cholesterol 144 mg/dL (<200); HDL Cholesterol 49 mg/dL (>40); Triglycerides 72 mg/dL (<150)
[2024-11-08 13:09] LABS: Vitamin B12 391 pg/mL (200-900)
== END 2024-11-08 08:22 | disposition home or self-care (01) ==
LOC: HO.HHCL 08:21
PROVIDERS: PCP Family Medicine; Visit Provider Family Medicine
DX: E11.65 Type 2 diabetes mellitus with hyperglycemia (principal); E78.00 Pure hypercholesterolemia, unspecified
CPT/HCPCS: 36415; 80061; 82607

== ENCOUNTER 2025-01-05 13:21 | Outpatient (REF) | payer OTHER, SELFPAY ==
--- OUTSIDE RECORDS SUMMARY | 2025-01-05 13:35 | XMS_ITS | Encounter Summary ---
Author Organization [employer] Address [address] [place] [address] 7 [place] [address] Care Team Providers Care Chemical Manager Name Role Phone Ritu Bardales MD Primary Care Provider + [phone] Haley Clark PharmD Unavailable [phone] Richard Bernal MD Unavailable Sun Pak OD Unavailable [phone] Edwina Sharma MD Unavailable [phone] Ruben Oconnor Unavailable Encounter Details Date Type Department Care Team (Late st Contact Info) Description 05/12/2023 Orders Only [facility] [address] [place], [place] [phone] Ritu Bardales MD [address] [place], [place] [phone] Social History Tobacco Use Types Packs/Day Years Used Date Smoking Tobacco: Never Smokeless Tobacco: Never Alcohol Use Standard Drinks/Week Comments Never 0 (1 standard drink = 0.6 oz pur e alcohol) Depression Answer Date Recorded Patient Health Questionnaire-9 Score 0 06/08/2022 Housing Stability Answer Date Recorded What is your housing situation today? I have housing today, but I am worried about losing housing in the future 02/21/[address] you li ve. Do you have problems with any of the following? None of the above 02/21/2023 Food Insecurity Answer Date Recorded Within the past 12 months, y ou worried that your food would run out before you got money to buy more: Never True 02/21/2023 Within the past 12 months,th e food you bought just didn't last and you didn't have enough money to get more: Never True Transportation Answer Date Recorded In the past 12 months, has l ack of transportation kept you from medical appts, meetings, work or from getting things needed for daily living? No 02/21/2023 Utilities Answer Date Recorded In the past 12 months, has t he electric, gas, oil or water company threatened to shut off services in your home? 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 Not on file Not on file Not on file documented as of this encounter Plan of Treatment Upcoming Encounters Date Type Department Care Team (Late st Contact Info) Description 01/22/2025 9:00 AM EDT Office Visit [facility] [address] [place] [phone] Ritu Bardales MD [address] [place] [phone] 03/26/2025 9:00 AM EST Medication Management [facility] [address] [place] [phone] Haley Clark PharmD [address] [place] [phone] documented as of this encounter Goals Goal Patient Goal Type Associated Problems Recent Progress Patient-Stated? Author Hemoglobin A1c < 7 Result Component 7(12/26/2024 9:28 AM EDT) No Haley Clark PharmD documented as of this encounter Visit Diagnoses Not on filedocumented in this encounter Additional Health Concerns Assessment Noted Time PHQ-9 Depression Total Score: 0 06/08/19 23 9:21 AM EST documented as of this encounter Care Teams Chemical Manager Relationship Specialty Start Date End Date Ritu Bardales MD [address] [place] [address] PCP - General Family Medicine 05/10/18 Haley Clark, YessyD [address] [place] [address] Pharmacist Internal Medicine 06/25/22 Richard Bernal MD [address] [place] [address] Orthopaedic Surgery 05/07/24 Sun Pak OD [address] [place] [address] Optometry 05/07/24 Edwina Sharma MD [address]rd [place] [address] Gastroenterology 05/07/24 Ruben Oconnor [address] [place] [phone] Orthopaedic Surgery 07/18/24 documented as of this encounter
--- OUTSIDE RECORDS SUMMARY | 2025-01-05 13:35 | XMS_ITS | Encounter Summary ---
Author Organization [employer] Address [address] [place] [address] 7t [place] [address] Care Team Providers Care Bottle Tester Name Role Phone Ritu Bardales MD Primary Care Provider [phone] Haley Clark PharmD Unavailable Richard Bernal MD Unavailable Sun Pak OD Unavailable [phone] Edwina Sharma MD Unavailable [phone] Ruben Oconnor Unavailable Encounter Details Date Type Department Care Team (Late st Contact Info) Description 09/10/2022 Abstract [facility] [address] [place], [place] [phone] Ritu Bardales MD [address] [place], [place] [phone] Social History Tobacco Use Types Packs/Day Years [...] Description 01/22/2025 9:00 AM EDT Office Visit [facility] [address] [place] [phone] Ritu Bardales MD [address] [place] [address] 03/26/2025 9:00 AM EST Medication Management [facility] [address] [place] [phone] Haley Clark PharmD [address] [place] [phone] documented as of this encounter Goals Goal [...] documented as of this encounter Care Teams Bottle Tester Relationship Specialty Start Date End Date Ritu Bardales MD [address] [place] [phone] PCP - General Family Medicine 05/10/18 Haley Clark, PharmD [address] [place] [phone] Pharmacist Internal Medicine 06/25/22 Richard Bernal MD [address] [place] [address] Orthopaedic Surgery 05/07/24 Sun Pak OD [address] [place] [phone] Optometry 05/07/24 Edwina Sharma MD [address] [place] [address] Drive 3rd [place] [address] Gastroenterology 05/07/24 Ruben Oconnor [address] [place] [phone] Orthopaedic Surgery 07/18/24 documented as of this encounter
--- OUTSIDE RECORDS SUMMARY | 2025-01-05 13:35 | XMS_ITS | Encounter Summary ---
Author Organization [employer] Address [address] [place] [address] 7 [place] [address] Care Team Providers Care Dental Director Name Role Phone Ritu Bardales MD Primary Care Provider Haley Clark PharmD Unavailable Richard Bernal MD Unavailable Sun Pak OD Unavailable Edwina Sharma MD Unavailable [phone] Ruben Oconnor Unavailable Reason for Visit * Reason Comments Med Refill Encounter Details Date Type Department Care Team (Late st Contact Info) Description 04/22/2022 Refill [facility] MEDICINE [address] [place] [address] Haley Clark, PharmD [address] [place] [address] Type 2 diabetes mellitus without complication, without long-term current use of insulin ([facility]) Social History Tobacco Use Types Packs/Day Years Used Date Smoking Tobacco: Never Assessed Sex and Gender Information Value Date Recorded Sex Assigned at Male 03/09/2022 10:16 AM EDT Legal Sex Male 10:16 AM EDT Gender Identity Male 03/09/2022 10:16 AM EDT Sexual Orientation Straight 03/09/2022 10 :16 AM EDT COVID-19 Exposure Response Date Recorded In the last 10 days, have yo u been in contact with someone who was confirmed or suspected to have Coronavirus/COVID-19? Unable to assess 04/21/2022 8:56 AM EST documented as of this encounter Miscellaneous Notes * Telephone Encounter - Haley Clark PharmD - 04/23/2022 2:01 PM EST Approving, but needs appt for additional refills. documented in this encounter Plan of Treatment Upcoming Encounters Date Type Department Care Team (Late st Contact Info) Description 01/22/2025 9:00 AM EDT Office Visit [facility] MEDICINE [address] [place] [phone] Ritu Bardales MD [address] [place] [phone] 03/26/2025 9:00 AM EST Medication Management [facility] MED[facility]INE [address] [place] [phone] Haley Clark PharmD [address] [place] [phone] documented as of this encounter Visit Diagnoses Diagnosis Type 2 diabetes mellitus without complication, without long-term current use of insulin ([facility]) documented in this encounter Care Teams Dental Director Relationship Specialty Start Date End Date Ritu Bardales MD [address] [place] [phone] PCP - General Family Medicine 05/10/18 Haley Clark PharmD [address] [place] [phone] Pharmacist Internal Medicine 06/25/22 Richard Bernal MD [address] [place] [address] Orthopaedic Surgery 05/07/24 Sun Pak OD [address] [place] [address] Optometry 05/07/24 Edwina Sharma MD [address]rd [place] [address] Gastroenterology 05/07/24 Ruben Oconnor [address] [place] [phone] Orthopaedic Surgery 07/18/24 documented as of this encounter
--- OUTSIDE RECORDS SUMMARY | 2025-01-05 13:35 | XMS_ITS | Encounter Summary ---
Author Organization [employer] Address [address] [place] [address] 7 [place] [address] Care Team Providers Care Leasing Director Name Role Phone Ritu Bardales MD Primary Care Provider + [phone] Haley Clark PharmD Unavailable [phone] Richard Bernal MD Unavailable Sun Pak OD Unavailable [phone] Edwina Sharma MD Unavailable [phone] Ruben Oconnor Unavailable Reason for Visit * Reason Comments Med Refill Encounter Details Date Type Department Care Team (Late st Contact Info) Description 07/23/2023 Refill [facility] MEDICINE [address] [place], [place] [phone] Sosa Wilson MD [address] [place], [place] [phone] Type 2 diabetes mellitus with hyperglycemia, unspecified whether terminal makeup operator insulin use ([facility]) Social History Tobacco Use Types Packs/Day Years [...] the past 12 months, has t he [employer], gas, oil or water [employer] threatened to shut off services in your [...] 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 Not on file Not on file Not on file documented as of this encounter Plan of Treatment Upcoming Encounters Date Type Department Care Team (Late st Contact Info) Description 01/22/2025 9:00 AM EDT Office Visit [facility] MEDICINE [address] [place] [phone] Ritu Bardales MD [address] [place] [phone] 03/26/2025 9:00 AM EST Medication Management [facility] [address] [place] [phone] Haley Clark PharmD [address] [place] [phone] documented as of this encounter Goals Goal Patient Goal Type Associated Problems Recent Progress Patient-Stated? Author Hemoglobin A1c < 7 Result Component 7(12/26/2024 9:28 AM EDT) No Haley Clark PharmD documented as of this encounter Visit Diagnoses Diagnosis Type 2 diabetes mellitus with hyperglycemia, unspecified whether group home insulin use ([facility]) documented in this encounter Additional Health Concerns Assessment Noted Time PHQ-9 Depression Total Score: 0 06/08/19 23 9:21 AM EST documented as of this encounter Care Teams Leasing Director Relationship Specialty Start Date End Date Ritu Bardales MD [address] [place] [address] PCP - General Family Medicine 05/10/18 Haley Clark PharmD [address] [place] [address] Pharmacist Internal Medicine 06/25/22 Richard Bernal MD [address] [place] [address] Orthopaedic Surgery 05/07/24 Sun Pak OD [address] [place] [address] Optometry 05/07/24 Edwina Sharma MD [address] [place] [address] Gastroenterology 05/07/24 Ruben Oconnor [address] [place] [phone] Orthopaedic Surgery 07/18/24 documented as of this encounter
--- OUTSIDE RECORDS SUMMARY | 2025-01-05 13:36 | XMS_ITS | Encounter Summary ---
Author Organization [employer] Address [address] [place] [address] [address] [place] [address] Care Team Providers Care Seafood Harvester Name Role Phone Ritu Bardales MD Primary Care Provider Haley Clark PharmD Unavailable Richard Bernal MD Unavailable PashaSun wilkerson OD Unavailable Edwina Sharma MD Unavailable [phone] Ruben Oconnor Unavailable Encounter Details Date Type Department Care Team (Late st Contact Info) Description 12/26/2024 Telephone [facility] MEDICINE [address] [place], [place] [phone] Haley Clark, PharmD [address] [place] [address] Social History Tobacco Use Types Packs/Day Years Used Date Smoking Tobacco: Former Cigarettes Passive Smoke Exposure: Past Smokeless Tobacco: Never Alcohol Use Standard Drinks/Week Comments Never 0 (1 standard drink = 0.6 oz pur e alcohol) Alcohol Answer Date Recorded Frequency of Alcohol Consumption Not on file 02/23/2024 Average Number of Drinks Not on file 024 Frequency of Binge Drinking Not on file 02/07 Score 0 02/23/2024 Depression Answer Date Recorded Patient Health Questionnaire-9 Score 0 08/16/2023 Patient Health Questionnaire-9 Score 0 08/16/2023 Last PHQ-9: Questionnaire Data Not on file 0 08/16/2023 Housing Stability Answer Date Recorded What is your housing situation today? I have jermaine pimentel 09/04/[address] you li ve. Do you have problems with any of the following? None of the above 09/04/2024 Food Insecurity Answer Date Recorded Within the past 12 months, y ou worried that your food would run out before you got money to buy more: Never True 09/04/2024 Within the past 12 months,th e food you bought just didn't last and you didn't have enough money to get more: Never True Transportation Answer Date Recorded In the past 12 months, has l ack of transportation kept you from medical appts, meetings, work or from getting things needed for daily living? No 09/04/2024 Utilities Answer Date Recorded In the past 12 months, has t he electric, gas, oil or water company threatened to shut off services in your home? 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 Not on file Not on file Not on file documented as of this encounter Miscellaneous Notes * Telephone Encounter - Haley Clark PharmD - 12/26/2024 12:43 PM EDT Please provide a new CDTM DM2 referral as current referral has . Thank you! documented in this encounter Plan of Treatment Upcoming Encounters Date Type Department Care Team ([facility] st Contact Info) Description 01/22/2025 9:00 AM EDT Office Visit [facility] MEDICINE [address] [place] [phone] Ritu Bardales MD [address] [place] [address] 03/26/2025 9:00 AM EST Medication Management [facility] MED[facility]INE [address] [place] [address] Haley Clark PharmD [address] [place] [address] documented as of this encounter Goals Goal Patient Goal Type Associated Problems Recent Progress Patient-Stated? Author Hemoglobin A1c < 7 Result Component 7(12/26/2024 9:28 AM EDT) No Haley Clark PharmD documented as of this encounter Visit Diagnoses Not on filedocumented in this encounter Additional Health Concerns Assessment Noted Time PHQ-9 Depression Total Score: 0 08/16/19 9:10 AM EDT documented as of this encounter Care Teams Seafood Harvester Relationship Specialty Start Date End Date Ritu Bardales MD [address] [place] [address] PCP - General Family Medicine 05/10/18 Haley Clark, YessyD [address] [place] [phone] Pharmacist Internal Medicine 06/25/22 Richard Bernal MD [address] [place] [address] Orthopaedic Surgery 05/07/24 Sun Pak OD [address] [place] [address] Optometry 05/07/24 Edwina Sharma MD [address] [place] [address] Gastroenterology 05/07/24 Ruben Oconnor [address] [place] [phone] Orthopaedic Surgery 07/18/24 documented as of this encounter
--- OUTSIDE RECORDS SUMMARY | 2025-01-05 13:36 | XMS_ITS | Clinical Summary ---
Author Organization [employer] Address [address] [place] [address] [address] [place] [address] Care Team Providers Care Counseling Services Director Name Role Phone Ritu Bardales MD Primary Care Provider [phone]- [phone] Haley Clark PharmD Unavailable [phone] Richard Bernal MD Unavailable Sun Pak OD Unavailable [phone] Edwina Sharma MD Unavailable [phone] Ruben Oconnor Unavailable Allergies Active Allergy Reactions Criticality Noted Date Comments Hussein Inhibitors Angioedema High 06/14/2014 Per [facility] note, patient seen in ER for angioedema believed to be secondary to ACEi Medications Alcohol Swabs (Alcohol Prep) 70 % padsIndications :Type 2 diabetes mellitus with hyperglycemia, unspecified whether oysterman insulin use ([facility]) Use three times daily 100 each 11 024 Active atorvastatin (Lipitor) 80 MG tabletIndicatio ns:Hypercholest erolemia Take 1 tablet (80 mg) by mouth Once per day. Dose increased 01/21/24 30 tablet 11 024 2024 Active tadalafil (Cialis) 10 MG tabletIndicatio ns:Erectile dysfunction, unspecified erectile dysfunction type Take 1 tablet (10 mg) by mouth if needed each day for erectile dysfunction. 10 tablet 025 Active TRUEplus Lancets 33G miscIndications :Type 2 diabetes mellitus with hyperglycemia, unspecified whether oysterman insulin use ([facility]) TEST BLOOD SUGAR TWICE DAILY 100 each 11 025 Active pen needle 32G x 4 mm miscIndications :Type 2 diabetes mellitus with hyperglycemia, unspecified whether oysterman insulin use ([facility]) Use as instructed with once daily insulin administration 100 each 3 025 2025 Active insulin glargine (Lantus SoloStar) 100 UNIT/ML penIndications: Type 2 diabetes mellitus with diabetic neuropathy, with long-term current use of insulin ([facility]) Inject subcutaneously 12 units once daily in the morning 025 Active Multiple Vitamin (Multivitamin) tabletIndicatio ns:Type 2 diabetes mellitus without complication, without long-term current use of insulin ([facility]) TAKE 1 TABLET BY MOUTH EVERY DAY 90 tablet 3 025 Active tamsulosin (Flomax) 0.4 MG 24 hr capsuleIndicati ons:Benign prostatic hyperplasia without lower urinary tract symptoms TAKE 1 CAPSULE BY MOUTH EVERY DAY 90 capsule 3 025 Active amLODIPine (Norvasc) 5 MG tabletIndicatio ns:Primary hypertension TAKE 1 TABLET BY MOUTH EVERY DAY 90 tablet 3 025 Active magnesium oxide 250 MG tabletIndicatio ns:Primary insomnia TAKE 2 TABLETS BY MOUTH EVERY DAY BEFORE BEDTIME 180 tablet 3 Active glucose (Glutose 15) 40 % gel oral gelIndications: Type 2 diabetes mellitus with hyperglycemia, unspecified whether mcfp insulin use ([facility]) USE FOR BLOOD SUGAR LESS THAN 60 MG / dl (LOW BLOOD SUGAR) 37.5 g 1 Active metFORMIN XR (Glucophage-XR) 500 MG 24 hr tablet TAKE 1 TABLET BY MOUTH TWICE DAILY, DO NOT BREAK, CRUSH, DISSOLVE OR CHEW 025 Active metFORMIN, OSM, (Fortamet) 500 MG 24 hr tabletIndicatio ns:Type 2 diabetes mellitus with hyperglycemia, unspecified whether oysterman insulin use ([facility]) Take 1 tablet by mouth twice daily. Do not crush, chew, or split. 180 tablet 025 2024 Discontinued(M ed list cleanup (will not trigger notification to Pharmacy)) Active Problems Patient Care Coordination No te Formatting of this note migh t be different from the original. [facility] DM clinic with Haley Clark, PharmD, [facility] Problem Noted Date Diagnosed Date Dietary counseling 09/04/2024 Assessment & Plan (09/04/2024 2:20 PM EDT): Dietary Recommendations: Fruits, vegetables, whole grains, protein foods, and fat-free or low-fat dairy products are healthy choices. Eat different types of protein foods in your diet. This can include seafood, lean meats, poultry, beans, peas, lentils, nuts, seeds, soy products, and eggs. Limit foods and beverages higher in added sugars, saturated fat, and sodium. Exercise counseling 09/04/2024 Assessment & Plan (09/04/2024 2:20 PM EDT): Exercise Recommendations: At least 150 minutes of moderate-intensity physical activity per week, or an equivalent combination of moderate- and vigorous-intensity activity. Chest pain 09/04/2024 Overview (09/04/2024): EKG today showed sinus bradycardia at 46 bpm. Although current chest pain is likely costocondritis from 200 push-ups a day, pt also had an episode more concerning for cardiac etiology 2 months ago. -Given family history and risk factors, cardiology referral placed 09/04/24 Assessment & Plan (09/04/2024 2:25 PM EDT): EKG today showed sinus bradycardia at 46 bpm. Although current chest pain is likely costocondritis from 200 push-ups a day, pt also had an episode more concerning for cardiac etiology 2 months ago. -Given family history and risk factors, cardiology referral placed 09/04/24 Costochondritis 09/04/2024 Overview (09/04/2024): Reproducible mid sternal chest pain x3 weeks, induced after exercise(200 push- ups everyday). Likely costochondritis. -recommended holding off on push-ups for a week and trying warm compress. Assessment & Plan (09/04/2024 2:24 PM EDT): Reproducible mid sternal chest pain x3 weeks, induced after exercise(200 push- ups everyday). Likely costochondritis. -recommended holding off on push-ups for a week and trying warm compress. Erectile dysfunction 05/22/2024 Overview (05/22/2024): Discussed options and side effects. - Will discontinue Viagra 05/22/24 - Pt would like to start tadalafil (Cialis) 10 MG tablet 05/22/24 Assessment & Plan (05/22/2024 11:25 AM EST): Discussed options and side effects. - Will discontinue Viagra 05/22/24 - Pt would like to start tadalafil (Cialis) 10 MG tablet 05/22/24 BMI 29.0-29.9,adult 10/08/2023 Overview (10/08/2023): Lifestyle modification discussed including nutrition stratgeies and phsycial activity recommendations. Assessment & Plan (09/04/2024 2:19 PM EDT): Lifestyle modification discussed including nutrition stratgeies and phsycial activity recommendations. Assessment & Plan (01/21/2024 9:36 AM EDT): Lifestyle modification discussed including nutrition stratgeies and phsycial activity recommendations. Assessment & Plan (10/08/2023 9:10 AM EDT): Lifestyle modification discussed including nutrition stratgeies and phsycial activity recommendations. Back pain 10/08/2023 Overview (07/18/2024): Pt having episodes of severe mid back pain lasting up to 30 minutes about once a month since about 2019. Symptoms can be triggered by going from sitting to standing. Pain is 10/10, sometimes so bad he in considering calling an ambulance. Differential include muscle spasm, possible diaphragmatic hernia verses other. Will check X-rays and abdominal CT. -Referred to Chiropractor per patient's request 10/08/23 - [facility] for a steroid injection to help with his pain. Seen 07/13/[address] Subhash Oconnor; MRI ordered, return after MRI Assessment & Plan (10/08/2023 9:25 AM EDT): Pt having episodes of severe mid back pain lasting up to 30 minutes about once a month since about 2019. Symptoms can be triggered by going from sitting to standing. Pain is 10/10, sometimes so bad he in considering calling an ambulance. Differential include muscle spasm, possible diaphragmatic hernia verses other. Will check X-rays and abdominal CT. -Referred to Chiropractor per patient's request 10/08/23 Other specified health status 01/25/2023 Overview (09/04/2024): -next comprehensive annual evaluation due after 05/22/25 -[facility] -Health care proxy completed on 10/08/23 Assessment & Plan (08/16/2023 9:48 AM EDT): -next physical exam due after 01/26/2024. -[facility] -Health care proxy given on 08/16/2023 Assessment & Plan (01/25/2023 9:26 AM EDT): -next physical exam due after 01/26/2024. -[facility] Benign prostatic hyperplasia without lower urinary tract symptoms 01/25/2023 Overview (01/25/2023): -continue Tamulosin -PSA was 0.61 05/2022 Assessment & Plan (08/16/2023 9:42 AM EDT): -continue Tamulosin -PSA was 0.61 05/2022 Assessment & Plan (01/25/2023 9:02 AM EDT): -continue Tamulosin -PSA was 0.61 05/2022 Shoulder pain 01/25/2023 Overview (01/25/2023): Repaired rotator cuff, right side, with Dr. Bernal 11/08/2019, concerns for rotator cuff disfunction now on the left. -Referral placed for left shoulder pain 01/22/[address] Bernal. -Xray of left shoulder ordered 01/25/2023. Assessment & Plan (08/16/2023 9:43 AM EDT): Repaired rotator cuff, right side, with Dr. Bernal 11/08/2019, concerns for rotator cuff disfunction now on the left. -Referral placed for left shoulder pain 01/22/[address] Bernal. -Xray of left shoulder ordered 01/25/2023. Assessment & Plan (01/25/2023 9:26 AM EDT): Repaired rotator cuff, right side, with Dr. Bernal 11/08/2019, concerns for rotator cuff disfunction now on the left. -Referral placed for left shoulder pain 01/22/[address] Bernal. -Xray of left shoulder ordered 01/25/2023. Tubular adenoma 03/28/2022 Overview (01/25/2023): -on colonoscopy 12/15/2021, next due 12/2026 Assessment & Plan (08/16/2023 9:48 AM EDT): -on colonoscopy 12/15/2021, next due 12/2026 Assessment & Plan (01/25/2023 9:05 AM EDT): -on colonoscopy 12/15/2021, next due 12/2026 Assessment & Plan (09/14/2022 9:11 AM EDT): -on colonoscopy 12/15/2021 Assessment & Plan (06/05/2022 6:12 PM EST): -on colonoscopy 12/15/2021 Assessment & Plan (03/28/2022 1:18 PM EST): With Dr Sharma on colonoscopy 12/15/2021 Next colonoscopy due 12/2026 On pre-exposure prophylaxis for HIV 03/28/2022 Overview (01/25/2023): -doing well on Descovy Assessment & Plan (08/16/2023 9:49 AM EDT): -doing well on Descovy Assessment & Plan (01/25/2023 9:05 AM EDT): -doing well on Descovy Assessment & Plan (06/04/2022 1:30 PM EST): Doing well on Descovy. Insomnia 03/28/2022 Cardiac risk counseling 03/28/2022 Overview (09/04/2024): Calculated 09/04/24: intermediate risk The 10-year ASCVD risk score (Marycruz PRAKASH, et al., 2019) is: 21.9% Values used to calculate the score: Age: 63 years Sex: Male Is Non- : No Diabetic: Yes Tobacco smoker: No Systolic Blood Pressure: 130 mmHg Is BP treated: Yes HDL Cholesterol: 48 mg/dL Total Cholesterol: 174 mg/dL Lab Results Component Value Date LDLCHOL 112 (H) 06/08/2022 LDLCHOL 86 07/11/2020 -Tobacco cessation: not applicable -Statin therapy: increase atorvastatin to 80 -Importance of moderate physical activity and nutrition interventions discussed. Assessment & Plan (01/21/2024 9:34 AM EDT): Calculated 01/21/24: intermediate risk The 10-year ASCVD risk score (Marycruz PRAKASH, et al., 2019) is: 24.4% Values used to calculate the score: Age: 63 years Sex: Male Is Non- : No Diabetic: Yes Tobacco smoker: No Systolic Blood Pressure: 134 mmHg Is BP treated: Yes HDL Cholesterol: 50 mg/dL Total Cholesterol: 195 mg/dL Lab Results Component Value Date LDLCHOL 112 (H) 06/08/2022 LDLCHOL 86 07/11/2020 -Tobacco cessation: not applicable -Statin therapy:increase atorvastatin to 80 -Importance of moderate physical activity and nutrition interventions discussed. Assessment & Plan (10/08/2023 9:12 AM EDT): Calculated 10/08/23: intermediate risk The 10-year ASCVD risk score (Marycruz PRAKASH, et al., 2019) is: 18.5% Values used to calculate the score: Age: 62 years Sex: Male Is Non- : No Diabetic: Yes Tobacco smoker: No Systolic Blood Pressure: 134 mmHg Is BP treated: No HDL Cholesterol: 49 mg/dL Total Cholesterol: 177 mg/dL Lab Results Component Value Date LDLCHOL 112 (H) 06/08/2022 LDLCHOL 86 07/11/2020 -Tobacco cessation: not applicable -Statin therapy:atorvastatin 40 -Importance of moderate physical activity and nutrition interventions discussed. Bilateral low back pain without sciatica 022 Overview (09/04/2024): Pt having episodes of severe mid back pain lasting up to 30 minutes about once a month since about 2019. Symptoms can be triggered by going from sitting to standing. Pain is 10/10, sometimes so bad he in considering calling an ambulance. Differential include muscle spasm, possible diaphragmatic hernia verses other. Will check X-rays and abdominal CT. -Was referred to Chiropractor per patient's request 10/08/23, attended 3 sessions without relief. -Referred to PT for message therapy at [facility] 01/21/24 - Referral to Orthopaedic Surgery 05/22/24, pt was told hip is balanced but MRI was not covered because he did not have x ray first. -Discussed calling Orthopedics 09/04/24 Assessment & Plan (09/04/2024 2:26 PM EDT): Pt having episodes of severe mid back pain lasting up to 30 minutes about once a month since about 2019. Symptoms can be triggered by going from sitting to standing. Pain is 10/10, sometimes so bad he in considering calling an ambulance. Differential include muscle spasm, possible diaphragmatic hernia verses other. Will check X-rays and abdominal CT. -Was referred to Chiropractor per patient's request 10/08/23, attended 3 sessions without relief. -Referred to PT for message therapy at [facility] 01/21/24 - Referral to Orthopaedic Surgery 05/22/24, pt was told hip is balanced but MRI was not covered because he did not have x ray first. -Discussed calling Orthopedics 09/04/24 Assessment & Plan (05/22/2024 11:23 AM EST): Pt having episodes of severe mid back pain lasting up to 30 minutes about once a month since about 2019. Symptoms can be triggered by going from sitting to standing. Pain is 10/10, sometimes so bad he in considering calling an ambulance. Differential include muscle spasm, possible diaphragmatic hernia verses other. Will check X-rays and abdominal CT. -Was referred to Chiropractor per patient's request 10/08/23, attended 3 sessions without relief. -Referred to PT for message therapy at [facility] 01/21/24 - Referral to Orthopaedic Surgery 05/22/24 Assessment & Plan (01/21/2024 9:36 AM EDT): Pt having episodes of severe mid back pain lasting up to 30 minutes about once a month since about 2019. Symptoms can be triggered by going from sitting to standing. Pain is 10/10, sometimes so bad he in considering calling an ambulance. Differential include muscle spasm, possible diaphragmatic hernia verses other. Will check X-rays and abdominal CT. -Was referred to Chiropractor per patient's request 10/08/23, attended 3 sessions without relief. -Referred to PT for message therapy at [facility] 01/21/24 Assessment & Plan (08/16/2023 9:49 AM EDT): Pt having episodes of severe mid back pain lasting up to 30 minutes about once a month since about 2019. Symptoms can be triggered by going from sitting to standing. Pain is 10/10, sometimes so bad he in considering calling an ambulance. Differential include muscle spasm, possible diaphragmatic hernia verses other. Will check X-rays and abdominal CT. Assessment & Plan (01/25/2023 9:03 AM EDT): Pt having episodes of severe mid back pain lasting up to 30 minutes about once a month since about 2019. Symptoms can be triggered by going from sitting to standing. Pain is 10/10, sometimes so bad he in considering calling an ambulance. Differential include muscle spasm, possible diaphragmatic hernia verses other. Will check X-rays and abdominal CT. Assessment & Plan (09/14/2022 9:11 AM EDT): Pt having episodes of severe mid back pain lasting up to 30 minutes about once a month since about 2019. Symptoms can be triggered by going from sitting to standing. Pain is 10/10, sometimes so bad he in considering calling an ambulance. Differential include muscle spasm, possible diaphragmatic hernia verses other. Will check X-rays and abdominal CT. Assessment & Plan (06/04/2022 1:29 PM EST): Pt having episodes of severe mid back pain lasting up to 30 minutes about once a month since about 2019. Symptoms can be triggered by going from sitting to standing. Pain is 10/10, sometimes so bad he in considering calling an ambulance. Differential include muscle spasm, possible diaphragmatic hernia verses other. Will check X-rays and abdominal CT. Assessment & Plan (03/28/2022 1:17 PM EST): Severe episodes of back pain since 2019. Can be triggered by sitting to stanind. Last up to [address] and x ray ordered 03/2022 Diabetes mellitus, type 2 11/05/2011 Overview (09/04/2024): Diabetes is not controlled. Will return to [facility]agment Program with our PharmD, GUERDA. Lab Results Component Value Date HGBA1C 8.7 (A) 09/04/2024 HGBA1C 9.0 (A) 08/29/2024 HGBA1C 9.1 (A) 05/22/2024 Lab Results Component Value Date CREATININE 1.31 07/03/2024 EGFR 55 07/03/2024 MICROALBCREU 10.6 01/04/2024 LDLCHOLCAL 108 (H) 02/25/2024 -Hussein/Arb: None due to allergy. -Statin therapy: atorvastatin 80mg -Diabetic eye exam: done 08/10/24 without diabetic retinopathy or diabetic macular edema. -Diabetic foot exam: completed on 10/08/23 -Continue lifestyle modifications -trulicity 1.5 weekly self discontinue 08/16/23 due to weight loss -Metformin previously increased to ER 1000mg twice daily however patient reported GI upset and requested decrease; metformin decreased to ER 500mg twice daily 07/11/24 - Restarted lantus solostar 10 units once daily by CDTM 07/11/24 - Pt next eye appointment is August [address] Helms - Referred to Collaborative Drug Therapy Managment Program with our GUERDA Owusu 05/22/24 - On 06/30/24 increase in Metformin from ER 750mg twice daily to ER 1000mg twice daily by CDTM. - [place] [facility] [place] for hyperglycemia; no medication changes. - 07/11/24 re-start Lantus solostar 10 units once daily and decreased Metformin to ER 500mg twice daily(due to GI upset) by CDTM. - 07/31/24 Increase lantus to 12 units once daily by CDTM. - 08/29/24 at visit with CDTM pt reports currently using lantus solostar 10 units once daily; instructed again to increase to 12 units once daily Assessment & Plan (09/04/2024 2:19 PM EDT): Diabetes is not controlled. Will return to Collabor[facility] Drug Therapy Managment Program with our GUERDA Owusu. Lab Results Component Value Date HGBA1C 8.7 (A) 09/04/2024 HGBA1C 9.0 (A) 08/29/2024 HGBA1C 9.1 (A) 05/22/2024 Lab Results Component Value Date CREATININE 1.31 07/03/2024 EGFR 55 07/03/2024 MICROALBCREU 10.6 01/04/2024 LDLCHOLCAL 108 (H) 02/25/2024 -Hussein/Arb: None due to allergy. -Statin therapy: atorvastatin 80mg -Diabetic eye exam: done 08/10/24 without diabetic retinopathy or diabetic macular edema. -Diabetic foot exam: completed on 10/08/23 -Continue lifestyle modifications -trulicity 1.5 weekly self discontinue 08/16/23 due to weight loss -Metformin previously increased to ER 1000mg twice daily however patient reported GI upset and requested decrease; metformin decreased to ER 500mg twice daily 07/11/24 - Restarted lantus solostar 10 units once daily by CDTM 07/11/24 - Pt next eye appointment is August [address] Helms - Referred to [facility] Drug Therapy Managment Program with our GUERDA Owusu 05/22/24 - On 06/30/24 increase in Metformin from ER 750mg twice daily to ER 1000mg twice daily by CDTM. - Se[place] [facility] [place] for hyperglycemia; no medication changes. - 07/11/24 re-start Lantus solostar 10 units once daily and decreased Metformin to ER 500mg twice daily(due to GI upset) by CDTM. - 07/31/24 Increase lantus to 12 units once daily by CDTM. - 08/29/24 at visit with CDTM pt reports currently using lantus solostar 10 units once daily; instructed again to increase to 12 units once daily Assessment & Plan (05/22/2024 11:24 AM EST): Diabetes is not controlled. Will return to Collaborative Drug Therapy Managment Program with our GUERDA Owusu. Lab Results Component Value Date HGBA1C 9.1 (A) 05/22/2024 HGBA1C 7.3 (A) 01/21/2024 HGBA1C 6.2 (A) 08/16/2023 Lab Results Component Value Date CREATININE 1.16 01/04/2024 EGFR >60 01/04/2024 MICROALBCREU 10.6 01/04/2024 LDLCHOLCAL 108 (H) 02/25/2024 -Hussein/Arb: None due to allergy. -Statin therapy: increase atorvastatin to 80mg -Diabetic eye exam: 04/21/2022 with [facility]. Encouraged to schedule Eye exam 10/08/23, no new notes. Placed new order 01/21/24. -Diabetic foot exam: completed on 10/08/23 -Continue lifestyle modifications -trulicity 1.5 weekly self discontinue 08/16/23 due to weight loss -Now off lantus due to well controlled BS -Continue metformin ER 750 daily, (prescribed twice daily) due to forgetfullness -Patient has graduated from CDTM as of 10/01/23 with two consecutive A1C within goal -A1C above 7 again 01/21/24, will keep monitoring to further evaluate. - Pt next eye appointment is August [address] Helms - Referred to Collabor[facility] Drug Therapy Managment Program with our PharmD, GUERDA 05/22/24 Assessment & Plan (01/21/2024 10:38 AM EDT): Diabetes is controlled. A1c goal < 7 Lab Results Component Value Date HGBA1C 7.3 (A) 01/21/2024 HGBA1C 6.2 (A) 08/16/2023 HGBA1C 5.8 (A) 01/25/2023 Lab Results Component Value Date CREATININE 1.16 01/04/2024 EGFR >60 01/04/2024 MICROALBCREU 10.6 01/04/2024 LDLCHOLCAL 123 (H) 01/04/2024 -Hussein/Arb: None due to allergy. -Statin therapy: increase atorvastatin to 80mg -Diabetic eye exam: 04/21/2022 with [facility]. Encouraged to schedule Eye exam 10/08/23, no new notes. Placed new order 01/21/24. -Diabetic foot exam: completed on 10/08/23 -Continue lifestyle modifications -trulicity 1.5 weekly self discontinue 08/16/23 due to weight loss -Now off lantus due to well controlled BS -Continue metformin ER 750 daily, (prescribed twice daily) due to forgetfullness -Patient has graduated from CDTM as of 10/01/23 with two consecutive A1C within goal -A1C above 7 again 01/21/24, will keep monitoring to further evaluate. Assessment & Plan (10/08/2023 9:24 AM EDT): Diabetes is controlled. A1c goal < 7 Lab Results Component Value Date HGBA1C 6.2 (A) 08/16/2023 HGBA1C 5.8 (A) 01/25/2023 HGBA1C 6.5 (A) 09/14/2022 Lab Results Component Value Date CREATININE 1.06 05/21/2022 -Hussein/Arb: None due to allergy. -Statin therapy: atorvastatin 40mg -Diabetic eye exam: 04/21/2022 with [facility]. Encouraged to schedule Eye exam 10/08/23 -Diabetic foot exam: 10/08/23 -Continue lifestyle modifications -trulicity 1.5 weekly self discontinue 08/16/23 due to weight loss -Now off lantus due to well controlled BS -Continue metformin ER 750 daily. -Patient has graduated from CDTM as of 10/01/23 with two consecutive A1C within goal Assessment & Plan (08/16/2023 9:45 AM EDT): Diabetes is controlled. A1c goal < 7 Lab Results Component Value Date HGBA1C 5.8 (A) 01/25/2023 HGBA1C 6.5 (A) 09/14/2022 HGBA1C 6.6 (H) 09/01/2022 Lab Results Component Value Date CREATININE 1.06 05/21/2022 -Changes: none today, weaning insulin with CDTM -Hussein/Arb: None due to allergy. -Statin therapy: atorvastatin 40mg -Diabetic eye exam: 04/21/2022 with [facility] -Diabetic foot exam: 01/25/2023 -Continue lifestyle modifications -Continue trulicity 1.5 weekly. -Now off lantus due to well controlled BS -Continue metformin ER 750 daily. -Followed in CDTM. Pt will continue to work with CDTM to ween off insulin. Assessment & Plan (01/25/2023 10:30 AM EDT): Diabetes is controlled. A1c goal < 7 Lab Results Component Value Date HGBA1C 6.5 (A) 09/14/2022 HGBA1C 6.6 (H) 09/01/2022 HGBA1C 7.0 (A) 06/08/2022 Lab Results Component Value Date CREATININE 1.06 05/21/2022 -Changes: none today, weaning insulin with CDTM -Hussein/Arb: None due to allergy. -Statin therapy: atorvastatin 40mg -Diabetic eye exam: 04/21/2022 with [facility] -Diabetic foot exam: 01/25/2023 -Continue lifestyle modifications -Continue trulicity 1.5 weekly. -Now off lantus due to well controlled BS -Continue metformin ER 750 daily. -Followed in [facility]. Pt will continue to work with [facility] to ween off insulin. Assessment & Plan (09/15/2022 6:58 AM EDT): Diabetes is controlled. A1c goal < 7 Lab Results Component Value Date HGBA1C 6.5 (A) 09/14/2022 HGBA1C 6.6 (H) 09/01/2022 HGBA1C 7.0 (A) 06/08/2022 Lab Results Component Value Date CREATININE 1.06 05/21/2022 -Changes: none today, weaning insulin with [facility] -Hussein/Arb: None due to allergy. -Statin therapy: atorvastatin 40mg -Diabetic eye exam: 04/21/2022 -Diabetic foot exam: due -Continue lifestyle modifications -Continue trulicity 1.5 weekly. -Continue lantus 10 units daily, decreased on 09/10/2022. -Continue metformin ER 750 daily. -Followed in [facility]. Pt will continue to work with [facility] to ween off insulin. Assessment & Plan (06/08/2022 10:28 AM EST): -NO HUSSEIN INHIBITOR DUE TO ANGIOEDEMA -Trulicity increased to 1.5mg once a week. 06/08/22 -Continue Metformin 750mg BID -Lantus 100mg will be decreased in the future after Pt in seen by [facility]. Assessment & Plan (03/28/2022 1:19 PM EST): No results found for: HGBA1C Patient is ALLERGIC TO HUSSEIN INHIBITOR Hypercholesterolemia 11/05/2011 Overview (09/04/2024): Lab Results Component Value Date CHOL 174 02/25/2024 CHOL 195 01/04/2024 TRIG 90 02/25/2024 TRIG 111 01/04/2024 TRIG 71 06/08/2022 HDL 48 02/25/2024 HDL 50 01/04/2024 LDLCHOLCAL 108 (H) 02/25/2024 LDLCHOLCAL 123 (H) 01/04/2024 -continue lifestyle modification -increase atorvastatin to 80 mg -labs ordered 12/23/23 -02/25/24 labs improved. -f/u in 6 months. Assessment & Plan (09/04/2024 2:20 PM EDT): Lab Results Component Value Date CHOL 174 02/25/2024 CHOL 195 01/04/2024 TRIG 90 02/25/2024 TRIG 111 01/04/2024 TRIG 71 06/08/2022 HDL 48 02/25/2024 HDL 50 01/04/2024 LDLCHOLCAL 108 (H) 02/25/2024 LDLCHOLCAL 123 (H) 01/04/2024 -continue lifestyle modification -increase atorvastatin to 80 mg -labs ordered 12/23/23 -02/25/24 labs improved. -f/u in 6 months. Assessment & Plan (02/23/2024 4:17 PM EDT): Lab Results Component Value Date CHOL 195 01/04/2024 TRIG 111 01/04/2024 TRIG 71 06/08/2022 HDL 50 01/04/2024 LDLCHOLCAL 123 (H) 01/04/2024 -continue lifestyle modifications -increase atorvastatin to 80 mg -labs ordered 12/23/23 -02/23/24 has not gotten labs done, will get them done this week. -f/u in 3 months, will call with results. Assessment & Plan (01/21/2024 9:33 AM EDT): Lab Results Component Value Date CHOL 195 01/04/2024 TRIG 111 01/04/2024 TRIG 71 06/08/2022 HDL 50 01/04/2024 LDLCHOLCAL 123 (H) 01/04/2024 -continue lifestyle modifications -increase atorvastatin to 80mg -follow-up in 1 month Assessment & Plan (10/08/2023 9:12 AM EDT): Lab Results Component Value Date CHOLESTEROL 177 06/08/2022 LDLCHOL 112 (H) 06/08/2022 LDLCHOL 86 07/11/2020 TRIG 71 06/08/2022 HDLCHOL 49 06/08/2022 CHOLHDLRAT 3.6 06/08/2022 -continue lifestyle modifications -Continue Atorvastatin 40mg Assessment & Plan (08/16/2023 9:47 AM EDT): Lab Results Component Value Date CHOLESTEROL 177 06/08/2022 LDLCHOL 112 (H) 06/08/2022 LDLCHOL 86 07/11/2020 TRIG 71 06/08/2022 HDLCHOL 49 06/08/2022 CHOLHDLRAT 3.6 06/08/2022 -continue lifestyle modifications -Continue Atorvastatin 40mg Assessment & Plan (01/25/2023 9:02 AM EDT): Lab Results Component Value Date CHOLESTEROL 177 06/08/2022 LDLCHOL 112 (H) 06/08/2022 LDLCHOL 86 07/11/2020 TRIG 71 06/08/2022 HDLCHOL 49 06/08/2022 CHOLHDLRAT 3.6 06/08/2022 -continue lifestyle modifications -Continue Atorvastatin 40mg Assessment & Plan (09/15/2022 7:05 AM EDT): Lab Results Component Value Date CHOLESTEROL 177 06/08/2022 LDLCHOL 112 (H) 06/08/2022 TRIG 71 06/08/2022 CHOLHDLRAT 3.6 06/08/2022 HDLCHOL 49 06/08/2022 -continue atorvastatin 40, consider increasing for goal LDL < 100 Hypertension 11/05/2011 Overview (01/21/2024): BP at goal. Now followed by [facility], BP is controlled. -PT HAS ALLERGY TO HUSSEIN INHIBITOR -Importance of low-sodium diet and regular moderate physical activity discussed. Assessment & Plan (09/04/2024 2:18 PM EDT): BP currently at goal. Now followed by [facility], BP is controlled. -PT HAS ALLERGY TO HUSSEIN INHIBITOR -Importance of low-sodium diet and regular moderate physical activity discussed. Assessment & Plan (02/23/2024 4:14 PM EDT): BP at goal. Now followed by [facility], BP is controlled. -PT HAS ALLERGY TO HUSSEIN INHIBITOR -Importance of low-sodium diet and regular moderate physical activity discussed. Assessment & Plan (01/21/2024 9:20 AM EDT): BP at goal. Now followed by [facility], BP is controlled. -PT HAS ALLERGY TO HUSSEIN INHIBITOR -Importance of low-sodium diet and regular moderate physical activity discussed. Assessment & Plan (08/16/2023 9:41 AM EDT): Now followed by [facility], BP is controlled. -PT HAS ALLERGY TO HUSSEIN INHIBITOR -Importance of low-sodium diet and regular moderate physical activity discussed. Assessment & Plan (01/25/2023 9:05 AM EDT): Now followed by [facility], BP is controlled. -PT HAS ALLERGY TO HUSSEIN INHIBITOR -Importance of low-sodium diet and regular moderate physical activity discussed. Assessment & Plan (09/15/2022 7:06 AM EDT): Now followed by [facility], BP is controlled. -PT HAS ALLERGY TO HUSSEIN INHIBITOR -continue amlodipine 5mg daily -Importance of low-sodium diet and regular moderate physical activity discussed. Assessment & Plan (06/05/2022 6:04 PM EST): Now followed by [facility], BP is controlled. -PT HAS ALLERGY TO HUSSEIN INHIBITOR -Importance of low-sodium diet and regular moderate physical activity discussed. Resolved Problems Problem Noted Date Diagnosed Date Resolved Date Type 2 diabetes mellitus wit h diabetic neuropathy, with long-term current use of insulin 01/17/2024 05/07/2024 Urinary frequency 06/04/2022 01/25/2023 Overview (01/25/2023): Declines rectal exam. If PSA elevated, will refer to urology, if normal, will trial tamusolsin for BPH symptoms. Assessment & Plan (09/14/2022 9:11 AM EDT): Check PSA. Declines rectal exam. If PSA elevated, will refer to urology, if normal, will trial tamusolsin for BPH symptoms Assessment & Plan (06/04/2022 1:30 PM EST): Check PSA. Declines rectal exam. If PSA elevated, will refer to urology, if normal, will trial tamusolsin for BPH symptoms Onychomycosis 06/15/2012 05/07/2024 Depressive disorder 11/05/2011 09/16/19 23 Encounters Date Type Department Care Team Description 12/27/2024 Orders Only [facility] [address] [place] [address] Ritu Bardales MD Type 2 diabetes mellitus with hyperglycemia, unspecified whether oysterman insulin use ([facility]) (Primary Dx) 12/26/2024 Telephone [facility] [address] [facility] [place] [address] Haley Clark, PharmD 12/26/2024 Travel 12/05/2024 Telephone [facility] [address] [place] [address] Haley Clark, PharmD 10/19/2024 Telephone [facility] [address] [place] [address] Ritu Bardales MD 10/19/2024 Travel 10/09/2024 Travel from Last 3 Months Immunizations Immunization Administration Dates Next Due Hep B, adult 04/10/2019,07/08/2018,06/10/2018 Influenza injectable quadriv alent IIV4 with preservative 03/17/2018,01/22/2017,01/31/2016 Influenza injectable quadriv alent preservative free 01/25/2023,01/19/2022,03/19/2020,04/10,06/14/2014 Influenza, IIV3, injectable 04/08/2011 Influenza, Split (incl. sherwin fied surface antigen) 03/08/2013,02/04/2012 Influenza, seasonal, injecta ble, preservative free 01/21/2024 Moderna Covid-19 Vaccine 12+ 06/25/2021,08/21/19 21,07/23/2020 Moderna Covid-19 Vaccine 6+ Bivalent 09/14/2022 Pfizer Covid-19 Vaccine 12+ 08/16/2023 Pneumococcal Conjugate PCV 20 09/10/2022 Pneumococcal Polysaccharide PPSV23 01/12/2007 RSV Bivalent 08/20/2023 TD (adult), 2 Lf tetanus tox oid, preservative free, adsorbed 01/19/2022 Tdap 11/05/2011,10/26/2000 Zoster, Recombinant 05/18/2020,03/19/2020 Family History Medical History Relation Name Comments Kidney failure Brother 1 Parkinsonism Brother 2 Coronary artery disease Father Relation Name Status Comments Brother 1 Brother 2 Alive Father Social History Tobacco Use Types Packs/Day Years Used Date Smoking Tobacco: Former Cigarettes Passive Smoke Exposure: Past Smokeless Tobacco: Never Tobacco Cessation:Counseling Given: Not Answered Alcohol Use Standard Drinks/Week Comments Never 0 [...] Not on file 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 Not on file Not on file Not on file Last Filed Vital Signs Vital Sign Reading Time Taken Comments Blood Pressure 130/72 12/26/2024 9:23 AM EDT Pulse 52 12/26/2024 9:23 AM EDT Temperature 36.8 C (98.3 F) 05/22/2024 9:17 AM EST Respiratory Rate 16 09/04/2024 9:17 AM EDT Oxygen Saturation 98% 02/23/2024 4:07 PM EDT Inhaled Oxygen Concentration - - Weight 90.7 kg (200 lb) 09/04/2024 9:17 AM EDT Height 175.3 cm (5' 9 ) 09/04/2024 9:17 AM EDT Body Mass Index 29.53 09/04/2024 9:17 AM EDT Plan of Treatment Upcoming Encounters Date Type Department Care Team (Late st Contact Info) Description 01/22/2025 9:00 AM EDT Office Visit [facility] [address] [place] [phone] Ritu Bardales MD [address] [place] [phone] 03/26/2025 9:00 AM EST Medication Management [facility] [address] [place] [phone] Haley Clark, PharmD [address] [place] [phone] Health Maintenance Due Date Last Done Comments CT Colonography 1960 FIT DNA/Cologuard 1960 FIT 1960 FOBT 1960 Sigmoidoscopy 1960 Diabetes: Urine Protein Screening 01/03/2025 01/04/2024 Influenza Vaccine (#1) 2025 , 01/25/2023, 01/19/2022, Additional history exists Alcohol/Substance Use Screening 02/22/2025 02/23/2024 COVID-19 Vaccine ( season) 2025 08/16/2023, 09/14/2022, 06/25/2021, Additional history exists Postponed from 01/09/2024 (Patient Refused) Diabetes: Hemoglobin A1C 03/28/2025 025, 09/04/2024, 08/29/2024, Additional history exists Diabetes: Foot Exam 05/22/2025 05/22/2024, 05/22/2024, 05/22/2024, Additional history exists Depression Screening 09/04/2025 09/04/2024, 08/16/19 24 Disability Screening 09/04/2025 09/04/2024 SDOH Screening 09/04/2025 09/04/2024 Tobacco Screening 09/04/2025 09/04/2024 Lipid Panel 11/08/2025 11/08/2024, 02/07, 01/04/2024, Additional history exists Eye Exam 08/10/2026 08/10/2024, 07/2024, 08/10/2024, Additional history exists Colonoscopy 12/15/2026 12/15/2021 Colorectal Cancer Screening 12/15/2026 DTaP/Tdap/Td Vaccines (4 - Td or Tdap) 01/20/2032 01/19/2022, 11/05/2011, 10/26/2000 Hepatitis B Vaccines Completed 04/10/2019, 07/08/2018, 06/10/2018 Zoster Vaccines Completed 05/18/2020, 03/19/2020 HIV Screening Completed 05/21/2022, 10/08, 03/12/2021, Additional history exists Hepatitis C Screening Completed 05/21/2022 , 03/12/2021, 07/11/2020 Pneumococcal Vaccine: 50+ Years Completed 09/10/2022, 01/12/2007 RSV Patients and Patients Aged 60 years or older Completed 08/20/2023 HIB Vaccines Aged Out No longer eligi ble based on patient's age to complete this topic HPV Vaccines Aged Out No longer eligi ble based on patient's age to complete this topic Hepatitis A Vaccines Aged Out No long er eligible based on patient's age to complete this topic IPV Vaccines Aged Out No longer eligi ble based on patient's age to complete this topic Meningococcal B Vaccine Aged Out No l onger eligible based on patient's age to complete this topic Meningococcal Vaccine Aged Out No ivanna rodrick eligible based on patient's age to complete this topic RSV under 20 months Aged Out No longe r eligible based on patient's age to complete this topic Rotavirus Vaccines Aged Out No longer eligible based on patient's age to complete this topic Goals Goal Patient Goal Type Associated Problems Recent Progress Patient-Stated? Author Hemoglobin A1c < 7 Result Component 7(12/26/2024 9:28 AM EDT) No Haley Clark PharmD Procedures Procedure Name Priority Date/Time Associated Diagnosis Comments POCT GLYCATED HEMOGLOBIN, TOTAL Routine 12/26/2024 9:28 AM EDT Type 2 diabetes mellitus with diabetic neuropathy, with long-term current use of insulin ([facility]) VITAMIN B12 Routine 11/08/2024 8:27 AM EDT LIPID PANEL, STANDARD Routine 11/08/2024 8:27 AM EDT ALBUMIN, RANDOM URINE W/CREATININE Routine 01/04/2024 8:17 AM EDT Type 2 diabetes mellitus with hyperglycemia, unspecified whether mcfp insulin use ([facility]) HEPATITIS C AB W/REFL TO HCV RNA, QN, PCR Routine 05/21/2022 9:06 AM EST Routine general medical examination at a health care facility HIV 1 RNA, QUANTITATIVE REAL TIME PCR Routine 05/21/2022 9:06 AM EST Routine general medical examination at a health care facility IP CONSULT TO OPHTHALMOLOGY Routine 04/21/2022 9:45 AM EST HM COLONOSCOPY Routine 12/15/2021 from Last 3 Months or Most Recently Relevant to Health Maintenance Results * (ABNORMAL) POCT A1c (12/26/2024 9:28 AM EDT) Hemoglobin A1C 7.0(A) 4.0 - 5.7 % QC Media Lot # [id number] Lot# Expiration Date [id number] Blood 12/26/2024 9:28 AM EDT us Ritu Bardales MD POINT OF CARE TEST ENTER/E DIT ORDERABLES Final Result * Vitamin B12 (11/08/2024 8:27 AM EDT) Vitamin B12 391 200 - 900 pg/mL [facility] Comment:NORMAL 200-900 PG/ML INDETERMINATE 160-199 PG/ML DEFICIENT < 160 PG/ML 11/08/2024 8:27 AM EDT 11/08/2024 11:51 AM EDT Ritu Bardales MD LAB BLOOD ORDERABLES Final Result [facility] [address] [place] [phone] * Lipid Panel, Standard (11/08/2024 8:27 AM EDT) Triglycerides 72 <150 mg/dL [facility] Comment:Desirable Triglyceri de: less than 150 mg/dLBorderline High Triglyceride 150-199 mg/dLHigh Triglyceride: 200-499 mg/dLVery High Triglyceride: greater than or equal to 5OO mg/dL Cholesterol 144 <200 mg/dL [facility] Comment:Desirable Cholestero l: less than 200 mg/dLBorderline High Cholesterol: 200-239 mg/dLHigh Cholesterol: greater than 239 mg/dL LDL Cholesterol Calculated 81 <100 mg/dL [facility] Comment:Desirable LDL: less than 100 mg/dLNear Optimal/Above Optimal LDL: 110- 129 mg/dLBorderline High LDL: 130-159 mg/dLHigh LDL: 160-189 mg/dLVery High LDL: greater than or equal to 190 mg/dL HDL Cholesterol 49 >40 mg/dL [facility] Comment:Desirable HDL: great er than 40 mg/dL Note: This HDL assay may give artificially low results in patients with liver disease. 11/08/2024 8:27 AM EDT 11/08/2024 11:51 AM EDT Ritu Bardales MD LAB BLOOD ORDERABLES Final Result Performing Organization Address [facility] de Phone Number [facility] [address] [place] [phone] * Albumin, Random Urine W/Creatinine (01/04/2024 8:17 AM EDT) Creatinine, Urine 197.57 mg/dL [facility] Microalbumin Urine 21.0 mg/L [facility] Microalbum Creatinine Ratio Ur 10.6 <30 ug/mg cr [facility] Comment:Albumin/Creatinine R atio Reference Ranges: Normal: < 30 ug/mg creatinine Microalbuminuria: 30 - 300 ug/mg creatinineClinical Albuminuria: > 300 ug/mg creatinine Urine 01/04/2024 8:17 AM EDT 01/04/2024 11:20 AM EDT Ritu Bardales MD LAB URINE ORDERABLES Final Result Performing Organization Address [facility] de Phone Number [facility] [address] [place] [phone] * Hepatitis C Antibody with Reflex to HCV, RNA, Quantitative, Real-Time PCR (05/21/2022 9:06 AM EST) Hepatitis C Antibody NON-REACT MARINA NON-REACT MARINA [facility] [employer] Index <0.02 <1.00 [facility] [employer] Comment: HCV antibody was non-reactive. There is no laboratory evidence of HCV infection. In most cases, no further action is required. However, if recent HCV exposure is suspected, a test for HCV RNA (test code 09014) is suggested. For additional information please refer to http://education.[employer]/faq/JWT69x8 (This link is being provided for informational/ educational purposes only.) Blood Venous blood specimen / Unknown 05/21/2022 9:06 AM EST 05/21/2022 9:06 AM EST Narrative [facility] - 05/22/2022 3:38 PM EST FASTING:YES FASTING: YES Result [facility] Ritu Bardales MD LAB BLOOD ORDERABLES Final Result Performing Organization Address [facility]/ZIP Co de Phone Number [address], [facility] [place] [phone] [facility] [email or web address] [address] [place] [address], (Nl2) [place] [phone] * HIV-1 RNA, Quantitative, Real-Time PCR (05/21/2022 9:06 AM EST) HIV 1 RNA, QN PCR NOT DETECTED NOT DETECTED copies/mL [facility] [email or web address] HIV 1 RNA, QN PCR NOT DETECTED NOT DETECTED Log copies/mL [facility] [email or web address] Comment: This test was performed using Real-Time Polymerase Chain Reaction. Reportable Range: 20 copies/mL to 10,000,000 copies/mL (1.30 log copies/mL to 7.00 log copies/mL). Blood Venous blood specimen / Unknown 05/21/2022 9:06 AM EST 05/21/2022 9:06 AM EST Narrative [facility] - 05/22/2022 3:38 PM EST FASTING:YES FASTING: YES Result [facility] Ritu Bardales MD LAB BLOOD ORDERABLES Final Result Performing Organization Address [facility] Co de Phone Number [address], [place] [phone] [facility] [email or web address] [address] [place] [address], (Nl2) [place] [phone] * Inpatient consult to Ophthalmology (04/21/2022 9:45 AM EST) Historical Provider INPATIENT CONSULT ORDERAB LES Final Result * Hm Colonoscopy (12/15/2021) Colonoscopy tubular adenoma with Dr. Sharma Historical Provider HEALTH MAINTENANCE Final Result from Last 3 Months or Most Recently Relevant to Health Maintenance Insurance [facility] * Guarantor: Reynaga, Suhas Account Type Relation to Patient Date of Phone Billing Address Personal/Family Self [address] [place] Advance Directives Documents on File Type Date Recorded Patient Snubber Expl anation Advance Directives and Living Will 10/08/2023 HEALTHCARE PROXY 09/09 06/02 Care Teams Counseling Services Director Relationship Specialty Start Date End Date [place], [place] Ritu [address] [place] [address] [place] [address] PCP - General Family Medicine 1/1/19 Haley Clark, Francoise [address] [place] [address] Pharmacist Internal Medicine 06/25/22 Richard Bernal MD [address] [place] [address] Orthopaedic Surgery 05/07/24 Sun Pak OD [address] [place] [phone] Optometry 05/07/24 Edwina Sharma MD [address] [place] [address] Gastroenterology 05/07/24 Ruben Oconnor [address] [place] [phone] Orthopaedic Surgery 07/18/24
[2025-01-05 17:24] LABS: Microalbum/Creatinine Ratio Ur 6.2 ug/mg cr (<30)
[2025-01-05 18:41] LABS: Anion Gap 11 (12-20); Blood Urea Nitrogen 16 mg/dL (9-16); Calcium 9.2 mg/dL (8.4-10.2); Carbon Dioxide 28 mmol/L (22-29); Chloride 107 mmol/L (96-108); Estimated Glomerular Filt Rate > 60; Potassium 4.4 mmol/L (3.3-5.1); Sodium 142 mmol/L (135-145)
== END 2025-01-05 13:22 | disposition home or self-care (01) ==
LOC: HO.HHCL 13:21
PROVIDERS: PCP Family Medicine; Visit Provider Family Medicine
DX: E11.40 Type 2 diabetes mellitus with diabetic neuropathy, unspecified (principal); Z79.4 Long term (current) use of insulin
CPT/HCPCS: 36415; 80048; 82043; 82570

== ENCOUNTER 2025-01-09 08:33 | Outpatient (AMB) | payer OTHER, SELFPAY ==
--- NOTE | 2025-01-09 08:36 | MHC.OFFVIS ---
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 The chest pain is described as a sensation of needles poking, which occurs randomly and is sometimes exacerbated by certain movements such as stretching. The pain does not worsen with physical activities like walking or climbing stairs. The patient has a history of diabetes mellitus, hypertension, and hyperlipidemia. There is a significant family history of coronary artery disease, as the patient's father underwent coronary artery bypass surgery. The patient engages in regular physical activity, performing approximately 200 push-ups daily, which may contribute to musculoskeletal strain. [facility] Medical History (Updated 01/09/25 @ 09:00 by Hernan Lowe MD) Back pain Diabetes Hypertension Elevated cholesterol Surgical History History of esophagogastroduodenoscopy (EGD) Hx of colonoscopy H/O hand surgery History of repair of right rotator cuff (~11/08/19) Family History (Updated 01/09/25 @ 08:42 by Erinn Gill CMA) Father Diabetes Heart disease Stroke Mother Asthma attack Brother Heart attack Social History (Updated 01/09/25 @ 08:43 by Erinn Gill CMA) Household Members Other:: single Alcohol intake: never Patient Tobacco Use Status: Former Tobacco user Advance Directives Date on File: 02/08/20 Current occupational status: employed Current occupation: [employer]- RIGHT HAND Review of Systems Const Denies chills, Denies fatigue, Denies fever(s), Denies frequent falls, Denies weakness, Denies weight gain and Denies weight loss ENT Denies dizziness Card Reports chest pain, Reports chest pain with activity, Denies leg edema, Denies lightheadedness, Reports palpitations, Denies dyspnea, Reports dyspnea on exertion and Denies orthopnea Resp Denies cough, Denies dyspnea and Reports dyspnea on exertion GI Denies bloating and Denies change in bowel habits Musc Denies muscle weakness, Denies numbness and Denies tingling Neuro Denies dizziness, Denies frequent falls, Denies numbness, Denies tingling and Denies weakness Endo Denies fatigue and Reports palpitations Physical Exam Vital Signs: Last Vital Signs Pulse 48 L 01/09/25 08:38 BP 118/70 01/09/25 08:38 BMI result Body Mass Index 28.6 Const General: comfortable and no acute distress Orientation/consciousness: patient oriented x3 HEENT Other: Unremarkable Head: Yes normal to inspection Neck Neck: Yes normal visual inspection Chest Chest palpation & inspection: normal inspection of the chest Resp Auscultation: clear to auscultation bilaterally Cardio Palpation: normal PMI Heart sounds: S1 normal heart sound present, S2 normal heart sound present, no gallops, no murmurs and no rubs GI Palpation (GI): Soft to palpation Back/Spine/Pelvis Other: unremarkable Skin General skin exam: no rashes or lesions noted Neuro General: patient oriented x3 Extrem General: Yes normal to inspection Psych Mental Status: mental status grossly normal Office Procedures EKG Details: EKG with sinus bradycardia with supraventricular ectopy; 48/Min. No ischemic changes. [id number], Complete Assessment & Plan Assessment & Plan (1) Precordial chest pain: Code(s): R07.2 - Precordial pain Category: Medical (2) Diabetes: Code(s): E11.9 - Type 2 diabetes mellitus without complications Category: Medical (3) Hypertension: Code(s): I10 - Essential (primary) hypertension Category: Medical (4) Hyperlipidemia, unspecified: Code(s): E78.5 - Hyperlipidemia, unspecified Category: Medical (5) Family history of coronary artery disease: Code(s): Z82.49 - Family history of ischemic heart disease and other diseases of the circulatory system Category: Medical Plan Atypical sounding chest pain which could be muscular related to physical exercise. However, he also has extensive risk factors and hence we will perform a comprehensive workup. Orders: Orders CT Cardiac Coronary Angio Today I25.10 - Atherosclerotic heart disease of inupiat coronary artery without angina pectoris, R07.2 - Precordial pain CA echo transthoracic complete Today R07.2 - Precordial pain Basic Metabolic Panel Today R07.2 - Precordial pain Coding Level of Care Code New Pt Level 4 (04061) Complex EM visit Add On G2211 Diagnoses Precordial chest pain R07.2 Diabetes E11.9 Hypertension I10 Hyperlipidemia, unspecified E78.5 Family history of coronary artery disease Z82.49 CPT Codes EKG - CPT: 75252-[id number], Complete ([id number])
[2025-01-09 08:38] VITALS: BP 118/70; PULSE 48; BMI 28.6
--- OUTSIDE RECORDS SUMMARY | 2025-01-09 09:11 | XMS_ITS | Encounter Summary ---
Author Organization [employer] Address [address] [place] [address] 7 [place] [address] Care Team Providers Care Bliss Press Operator Name Role Phone Ritu Bardales MD Primary Care Provider + [phone] Haley Clark PharmD Unavailable [phone] Richard Bernal MD Unavailable Sun Pak OD Unavailable [phone] Edwina Sharma MD Unavailable [phone] Ruben Oconnor Unavailable Encounter Details Date Type Department Care Team (Late st Contact Info) Description 05/12/2023 Orders Only [employer] [facility] [address] [place], [place] [phone] Ritu Bardales MD [address] [place], [place] [phone] Social History Tobacco Use Types Packs/Day Years [...] 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 Not on file Not on file Not on file documented as of this encounter Plan of Treatment Upcoming Encounters Date Type Department Care Team (Late st Contact Info) Description 01/22/2025 9:00 AM EDT Office Visit [facility] [address] [place] [phone] Ritu Bardales MD [address] [place] [phone] 03/26/2025 9:00 AM EST Medication Management [facility] [address] [place] [phone] Haley Clark PharmD [address] [place] [phone] documented as of this encounter Goals Goal [...] documented as of this encounter Care Teams Bliss Press Operator Relationship Specialty Start Date End Date Ritu Bardales MD [address] [place] [address] PCP - General Family Medicine 05/10/18 Haley Clark, YessyD [address] [place] [address] Pharmacist Internal Medicine 06/25/22 Richard Bernal MD [address] [place] [address] Orthopaedic Surgery 05/07/24 Sun Pak OD [address] [place] [phone] Optometry 05/07/24 Edwina Sharma MD [address]rd [place] [address] Gastroenterology 05/07/24 Ruben Oconnor [address] [place] [phone] Orthopaedic Surgery 07/18/24 documented as of this encounter
--- OUTSIDE RECORDS SUMMARY | 2025-01-09 09:11 | XMS_ITS | Clinical Summary ---
Author Organization [employer] Address [address] [place] [address] 7t [place] [address] Care Team Providers Care System Software Developer Name Role Phone Ritu Bardales MD Primary Care Provider [phone]- [phone] Haley Clark PharmD Unavailable [phone] Richard Bernal MD Unavailable Sun Pak OD Unavailable [phone] Edwina Sharma MD Unavailable [phone] Ruben Oconnor Unavailable Allergies Active Allergy Reactions Criticality Noted Date Comments Hussein Inhibitors Angioedema High 06/14/2014 Per [facility] note, patient seen in ER for angioedema believed to be secondary to ACEi Medications Alcohol Swabs (Alcohol Prep) 70 % padsIndications :Type 2 diabetes mellitus with hyperglycemia, unspecified whether termite exterminator insulin use ([facility]) Use three times daily 100 each 11 [...] 2 diabetes mellitus with hyperglycemia, unspecified whether correction insulin use ([facility]) TEST BLOOD SUGAR TWICE DAILY 100 each 11 025 Active pen needle 32G x 4 mm miscIndications :Type 2 diabetes mellitus with hyperglycemia, unspecified whether termite exterminator insulin use ([facility]) Use as instructed with once daily insulin administration 100 each 3 025 2025 Active insulin glargine (Lantus SoloStar) 100 UNIT/ML penIndications: Type 2 diabetes mellitus with diabetic neuropathy, with long-term current use of insulin ([facility]) Inject subcutaneously 12 units once daily in the morning 025 Active Multiple Vitamin (Multivitamin) tabletIndicatio ns:Type 2 diabetes mellitus without complication, without long-term current use of insulin ([facility]) TAKE 1 TABLET BY MOUTH EVERY DAY [...] 2 diabetes mellitus with hyperglycemia, unspecified whether correction insulin use ([facility]) USE FOR BLOOD SUGAR LESS THAN 60 MG / dl (LOW BLOOD SUGAR) 37.5 g 1 Active metFORMIN XR (Glucophage-XR) 500 MG 24 hr tablet TAKE 1 TABLET BY MOUTH TWICE DAILY, DO NOT BREAK, CRUSH, DISSOLVE OR CHEW 025 Active metFORMIN, OSM, (Fortamet) 500 MG 24 hr tabletIndicatio ns:Type 2 diabetes mellitus with hyperglycemia, unspecified whether correction insulin use ([facility]) Take 1 tablet by mouth twice daily. Do not crush, chew, or split. 180 tablet 025 2024 Discontinued(M ed list cleanup (will not trigger notification to Pharmacy)) Active Problems Patient Care Coordination No te Formatting of this note migh t be different from the original. [facility] clinic with Haley Clark, PharmD, [facility] Problem Noted Date Diagnosed Date Dietary counseling [...] to Chiropractor per patient's request 10/08/23 - [facility] spine for a steroid injection [...] due after 05/22/25 -[facility] -Health care proxy completed on 10/08/23 Assessment & Plan (08/16/2023 9:48 AM EDT): -next physical exam due after 01/26/2024. -[facility] -Health care proxy given on 08/16/2023 Assessment & Plan (01/25/2023 9:26 AM EDT): -next physical exam due after 01/26/2024. -[facility] Benign prostatic hyperplasia without lower urinary tract [...] -Referred to PT for message therapy at [facility] 01/21/24 - Referral to Orthopaedic Surgery 05/22/24, [...] -Referred to PT for message therapy at [facility] 01/21/24 - Referral to Orthopaedic Surgery 05/22/24, [...] -Referred to PT for message therapy at [facility] 01/21/24 - Referral to Orthopaedic Surgery 05/22/24 [...] -Referred to PT for message therapy at [facility] 01/21/24 Assessment & Plan (08/16/2023 9:49 AM [...] twice daily by CDTM. - Seen at [facility] 07/03/23 for hyperglycemia; no medication changes. [...] twice daily by CDTM. - Seen at [facility] 07/03/23 for hyperglycemia; no medication changes. [...] to 80mg -Diabetic eye exam: 04/21/2022 with [facility]. Encouraged to schedule Eye exam 10/08/23, no [...] to 80mg -Diabetic eye exam: 04/21/2022 with [facility]. Encouraged to schedule Eye exam 10/08/23, no [...] atorvastatin 40mg -Diabetic eye exam: 04/21/2022 with [facility]. Encouraged to schedule Eye exam 10/08/23 -Diabetic [...] atorvastatin 40mg -Diabetic eye exam: 04/21/2022 with [facility] -Diabetic foot exam: 01/25/2023 -Continue lifestyle modifications [...] atorvastatin 40mg -Diabetic eye exam: 04/21/2022 with [facility] -Diabetic foot exam: 01/25/2023 -Continue lifestyle modifications [...] Encounters Date Type Department Care Team Description 01/05/2025 Orders Only [facility] [place] [address] Ritu Bardales MD 12/27/2024 Orders Only [facility] [place] [address] Ritu Bardales MD Type 2 diabetes mellitus with hyperglycemia, unspecified whether termite exterminator insulin use ([facility]) (Primary Dx) 12/26/2024 Telephone [facility] [place] [address] Haley Clark, PharmD 12/26/2024 Travel 12/05/2024 Telephone [facility] [place] [address] Haley Clark, PharmD 10/19/2024 Telephone [facility] [place] [address] Ritu Bardales MD 10/19/2024 Travel 10/09/2024 Travel [...] 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 Not on file [...] Description 01/22/2025 9:00 AM EDT Office Visit [facility] [address] [place] [phone] Ritu Bardales MD [address] [place] [address] 03/26/2025 9:00 AM EST Medication Management [facility] [address] [place] [phone] Haley Clark, PharmD [address] [place] [address] Health Maintenance Due Date Last Done Comments CT Colonography 1960 FIT DNA/Cologuard 1960 FIT 1960 FOBT 1960 Sigmoidoscopy 1960 Influenza Vaccine (#1) 2025 4, 01/25/2023, 01/19/2022, Additional history exists Alcohol/Substance Use [...] 11/08/2025 11/08/2024, 02/07, 01/04/2024, Additional history exists Diabetes: Urine Protein Screening 01/05/2026 01/05/2025, 01/04/2024 Eye Exam 08/10/2026 08/10/2024, 04/0 07/2024, 08/10/2024, Additional history exists Colonoscopy 12/15/2026 [...] Procedure Name Priority Date/Time Associated Diagnosis Comments BASIC METABOLIC PANEL Routine 01/05/2025 1:25 PM EDT ALBUMIN, RANDOM URINE W/CREATININE Routine 01/05/2025 1:25 PM EDT POCT GLYCATED HEMOGLOBIN, TOTAL Routine 12/26/2024 9:28 AM EDT Type 2 diabetes mellitus with diabetic neuropathy, with long-term current use of insulin ([facility]) VITAMIN B12 Routine 11/08/2024 8:27 AM EDT LIPID PANEL, STANDARD Routine 11/08/2024 8:27 AM EDT HEPATITIS C AB W/REFL TO HCV RNA, [...] Recently Relevant to Health Maintenance Results * Albumin, Random Urine W/Creatinine (01/05/2025 1:25 PM EDT) Creatinine, Urine 208.74 mg/dL [facility] Microalbumin Urine 13.0 mg/L [facility] Microalbum Creatinine Ratio Ur 6.2 <30 ug/mg cr [facility] Comment:Albumin/Creatinine R atio Reference Ranges: Normal: < 30 ug/mg creatinine Microalbuminuria: 30 - 300 ug/mg creatinineClinical Albuminuria: > 300 ug/mg creatinine 01/05/2025 1:25 PM EDT 01/05/2025 4:10 PM EDT Ritu Bardales MD LAB URINE ORDERABLES Final Result Performing Organization Address City/State/[facility] Co de Phone Number [facility] [address] [place] [phone] * (ABNORMAL) Basic Metabolic Panel (01/05/2025 1:25 PM EDT) Sodium 142 135 - 145 mmol/L [facility] Potassium 4.4 3.3 - 5.1 mmol/L [facility] Chloride 107 96 - 108 mmol/L [facility] Carbon Dioxide 28 22 - 29 mmol/L [facility] Anion Gap 11(L) 12 - 20 [facility] Urea Nitrogen (BUN) 16 9 - 16 mg/dL [facility] Creatinine, Serum 1.21 0.5 - 1.4 mg/dL [facility] Estimated Glomerular Filt Rate >60 [facility] Comment:Chronic Kidney Disea se: Estimated GFR < 60 mL/min/1.44m9Isdcbe Kidney Disease: Estimated GFR < 15 mL/min/1.73m2 Glucose 110 60 - 115 mg/dL [facility] Calcium 9.2 8.4 - 10.2 mg/dL [facility] 01/05/2025 1:25 PM EDT 01/05/2025 5:25 PM EDT Ritu Bardales MD LAB BLOOD ORDERABLES Final Result Performing Organization Address [facility]/ZIP Co de Phone Number [facility] [address] [place] [phone] * (ABNORMAL) POCT A1c (12/26/2024 9:28 AM EDT) Pathologist [facility] Hemoglobin A1C 7.0(A) 4.0 - 5.7 % QC Media Lot # [id number] Lot# Expiration Date Blood 12/26/2024 9:28 AM EDT Ritu Bardales MD POINT OF CARE TEST ENTER/E DIT ORDERABLES Final Result * Vitamin B12 (11/08/2024 8:27 AM EDT) Pathologist [facility] Vitamin B12 391 200 - 900 pg/mL [facility] Comment:NORMAL 200-900 PG/ML INDETERMINATE 160-199 PG/ML DEFICIENT < 160 PG/ML 11/08/2024 8:27 AM EDT 11/08/2024 11:51 AM EDT Ritu Bardales MD LAB BLOOD ORDERABLES Final Result Performing Organization Address [facility]/ZIP Co de Phone Number [facility] [address] [place] [phone] * Lipid Panel, Standard (11/08/2024 8:27 AM EDT) Triglycerides 72 <150 mg/dL [facility] Comment:Desirable Triglyceri de: less than 150 mg/dLBorderline High Triglyceride 150-199 mg/dLHigh Triglyceride: 200-499 mg/dLVery High Triglyceride: greater than or equal to 5OO mg/dL Cholesterol 144 <200 mg/dL [facility] Comment:Desirable Cholestero l: less than 200 mg/dLBorderline High Cholesterol: 200-239 mg/dLHigh Cholesterol: greater than 239 mg/dL LDL Cholesterol Calculated 81 <100 mg/dL [facility] Comment:Desirable LDL: less than 100 mg/dLNear Optimal/Above Optimal LDL: 110- 129 mg/dLBorderline High LDL: 130-159 mg/dLHigh LDL: 160-189 mg/dLVery High LDL: greater than or equal to 190 mg/dL HDL Cholesterol 49 >40 mg/dL [facility] Comment:Desirable HDL: great er than 40 mg/dL Note: This HDL assay may give artificially low results in patients with liver disease. 11/08/2024 8:27 AM EDT 11/08/2024 11:51 AM EDT Ritu Bardales MD LAB BLOOD ORDERABLES Final Result Performing Organization Address City/[facility]/ZIP Co de Phone Number [facility] [address] [place] [phone] * Hepatitis C Antibody with Reflex to HCV, RNA, Quantitative, Real-Time PCR (05/21/2022 9:06 AM EST) Hepatitis C Antibody NON-REACT MARINA NON-REACT MARINA [facility] Index <0.02 <1.00 [facility] Comment: HCV antibody was non-reactive. There is no laboratory evidence of HCV infection. In most cases, no further action is required. However, if recent HCV exposure is suspected, a test for HCV RNA (test code 78239) is suggested. For additional information please refer to http://education.Travelatus/faq/UTI18g3 (This link is being provided for informational/ educational purposes only.) Blood Venous blood specimen / Unknown 05/21/2022 9:06 AM EST 05/21/2022 9:06 AM EST Narrative [facility] - 05/22/2022 3:38 PM EST FASTING:YES FASTING: YES Ritu Bardales MD LAB BLOOD ORDERABLES Final Result Performing Organization Address City/[facility]/ZIP Co de Phone Number [email or web address] [address] [place] [address], [place] [phone] Anita Margarita [place] [employer] [address] [facility], ([address]) [place] [phone] * HIV-1 RNA, Quantitative, Real-Time PCR (05/21/2022 9:06 AM EST) HIV 1 RNA, QN PCR NOT DETECTED NOT DETECTED copies/mL Anita Margarita [place] [employer] HIV 1 RNA, QN PCR NOT DETECTED NOT DETECTED Log copies/mL Anita Margarita [place] [employer] Comment: This test was performed using Real-Time Polymerase Chain Reaction. Reportable Range: 20 copies/mL to 10,000,000 copies/mL (1.30 log copies/mL to 7.00 log copies/mL). Blood Venous blood specimen / Unknown 05/21/2022 9:06 AM EST 05/21/2022 9:06 AM EST Narrative [facility] - 05/22/2022 3:38 PM EST FASTING:YES FASTING: YES Ritu Bardales MD LAB BLOOD ORDERABLES Final Result [facility] [address] [facility], [facility], [place] [address] Anita Margarita [facility] [address] [facility], ([address]) [place] [address] * Inpatient consult to Ophthalmology (04/21/2022 9:45 AM EST) Historical Provider INPATIENT CONSULT ORDERAB LES Final Result * Colonoscopy (12/15/2021) Pathologist [facility] Colonoscopy tubular adenoma with Dr. Sharma Esdras Stuart MD HEALTH MAINTENANCE Final Result from Last 3 Months or Most Recently Relevant to Health Maintenance Insurance [facility] Advance Directives Documents on File Type Date Recorded Patient Gis Developer Expl anation Advance Directives and Living Will 10/08/2023 HEALTHCARE PROXY 09/09 06/02 Care Teams System Software Developer Relationship Specialty Start Date End Date [place], MD Ritu [address] [place] [address] PCP - General Family Medicine 05/10/18 Haley Clark PharmD [address] [place] [address] Pharmacist Internal Medicine 06/25/22 Richard Bernal MD [address] [place] [address] Orthopaedic Surgery 05/07/24 Sun Pak OD [address] [place] [phone] Optometry 05/07/24 Edwina Sharma MD [address] [place] [address] 3rd [place] [address] Gastroenterology 05/07/24 Ruben Oconnor [address] [place] [phone] Orthopaedic Surgery 07/18/24
--- OUTSIDE RECORDS SUMMARY | 2025-01-09 09:11 | XMS_ITS | Encounter Summary ---
Author Organization [employer] Address [address] [place] [address] 7 [place] [address] Care Team Providers Care Powder Line Repairer Name Role Phone Ritu Bardales MD Primary Care Provider Haley lCark PharmD Unavailable Richard Bernal MD Unavailable Sun Pak OD Unavailable Edwina Sharma MD Unavailable [phone] Ruben Oconnor Unavailable Reason for Visit * Reason Comments Med Refill Encounter Details Date Type Department Care Team (Late st Contact Info) Description 04/22/2022 Refill [facility] 230 [place] [address] Haley Clark, PharmD 230 [place] [address] Type 2 diabetes mellitus without complication, without long-term current use of insulin ([facility]) Social History Tobacco Use Types Packs/Day Years [...] Description 01/22/2025 9:00 AM EDT Office Visit [facility] [address] [place] [address] Ritu Bardales MD [address] [place] [address] 03/26/2025 9:00 AM EST Medication Management [facility] [address] [place] [address] Haley Clark PharmD [address] [place] [address] documented as of this encounter Visit Diagnoses Diagnosis Type 2 diabetes mellitus without complication, without long-term current use of insulin ([facility]) documented in this encounter Care Teams Powder Line Repairer Relationship Specialty Start Date End Date Ritu Bardales MD [address] [place] [address] PCP - General Family Medicine 05/10/18 Haley Clark PharmD [address] [place] [address] Pharmacist Internal Medicine 06/25/22 Richard Bernal MD [address] [place] [address] Orthopaedic Surgery 05/07/24 Sun Pak OD [address] [place] [address] Optometry 05/07/24 Edwina Sharma MD [address] 3rd [place] [address] Gastroenterology 05/07/24 Ruben Oconnor [address] [place] [phone] Orthopaedic Surgery 07/18/24 documented as of this encounter
--- OUTSIDE RECORDS SUMMARY | 2025-01-09 09:11 | XMS_ITS | Encounter Summary ---
Author Organization [employer] Address [address] [facility] 7t [place] [address] Care Team Providers Care Parking Lot Attendant And Cashier Name Role Phone Ritu Bardales MD Primary Care Provider Haley Clark PharmD Unavailable Richard Bernal MD Unavailable Sun Pak OD Unavailable Edwina Sharma MD Unavailable [phone] Ruben Oconnor Unavailable Encounter Details Date Type Department Care Team (Late st Contact Info) Description 01/05/2025 Orders Only [facility] 230 [place], [place] [phone] Ritu Bardales MD [address] [place], [place] [phone] Social History Tobacco Use Types Packs/Day Years [...] 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 Not on file Not on file Not on file documented as of this encounter Plan of Treatment Upcoming Encounters Date Type Department Care Team (Late st Contact Info) Description 01/22/2025 9:00 AM EDT Office Visit [facility] [address] [place] [address] Ritu Bardales MD 230 [place] [address] 03/26/2025 9:00 AM EST Medication Management [facility] [address] [place] [address] Haley Clark, PharmD 230 [place] [address] documented as of this encounter Goals Goal Patient Goal Type Associated Problems Recent Progress Patient-Stated? Author Hemoglobin A1c < 7 Result Component 7(12/26/2024 9:28 AM EDT) No Haley Clark, PharmD documented as of this encounter Procedures Procedure Name Priority Date/Time Associated Diagnosis Comments ALBUMIN, RANDOM URINE W/CREATININE Routine 01/05/2025 1:25 PM EDT BASIC METABOLIC PANEL Routine 01/05/2025 1:25 PM EDT documented in this encounter Results * (ABNORMAL) Basic Metabolic Panel (01/05/2025 1:25 PM EDT) Sodium 142 135 - 145 mmol/L [facility] Potassium 4.4 3.3 - 5.1 mmol/L [facility] Chloride 107 96 - 108 mmol/L [facility] Carbon Dioxide 28 22 - 29 mmol/L [facility] Anion Gap 11(L) 12 - 20 [facility] Urea Nitrogen (BUN) 16 9 - 16 mg/dL [facility] Creatinine, Serum 1.21 0.5 - 1.4 mg/dL [facility] Estimated Glomerular Filt Rate >60 [facility] Comment:Chronic Kidney Disea se: Estimated GFR < 60 mL/min/1.87z0Arlyaz Kidney Disease: Estimated GFR < 15 mL/min/1.73m2 Glucose 110 60 - 115 mg/dL [facility] Calcium 9.2 8.4 - 10.2 mg/dL [facility] 01/05/2025 1:25 PM EDT 01/05/2025 5:25 PM EDT us Ritu Bardales MD LAB BLOOD ORDERABLES Final Result [facility] [address] [place] [address] [phone] * Albumin, Random Urine W/Creatinine (01/05/2025 1:25 PM EDT) Creatinine, Urine 208.74 mg/dL [facility] Microalbumin Urine 13.0 mg/L H [facility] Microalbum Creatinine Ratio Ur 6.2 <30 ug/mg cr [facility] Comment:Albumin/Creatinine R atio Reference Ranges: Normal: < 30 ug/mg creatinine Microalbuminuria: 30 - 300 ug/mg creatinineClinical Albuminuria: > 300 ug/mg creatinine 01/05/2025 1:25 PM EDT 01/05/2025 4:10 PM EDT Ritu Bardales MD LAB URINE ORDERABLES Final Result [facility] [address] [place] [address] [phone] documented in this encounter Visit Diagnoses Not on filedocumented in this encounter Additional Health Concerns Assessment Noted Time PHQ-9 Depression Total Score: 0 08/16/19 24 9:10 AM EDT documented as of this encounter Care Teams Parking Lot Attendant And Cashier Relationship Specialty Start Date End Date Ritu Bardales MD [address] [place] [address] PCP - General Family Medicine 05/10/18 Haley Clark, YessyD [address] [place] [address] Pharmacist Internal Medicine 06/25/22 Richard Bernal MD [address] [place] [address] Orthopaedic Surgery 05/07/24 Sun Pak OD [address] [place] [address] Optometry 05/07/24 Edwina Sharma MD [address] 3rd [place] [address] Gastroenterology 05/07/24 Ruben Oconnor [address] [place] [address] [phone] Orthopaedic Surgery 07/18/24 documented as of this encounter
--- OUTSIDE RECORDS SUMMARY | 2025-01-09 09:11 | XMS_ITS | Encounter Summary ---
Author Organization [employer] Address [address] [place] [address] 7t [place] [address] Care Team Providers Care Real Estate Acquisition Analyst Name Role Phone Ritu Bardales MD Primary Care Provider Haley Clark PharmD Unavailable Richard Bernal MD Unavailable Sun Pak OD Unavailable [phone] Edwina Sharma MD Unavailable [phone] Ruben Oconnor Unavailable Encounter Details Date Type Department Care Team (Late st Contact Info) Description 12/26/2024 Telephone [facility] 230 [place], [place] [phone] Haley Clark, PharmD 230 [place] [address] Social History Tobacco Use Types Packs/Day Years [...] 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 Not on file [...] Upcoming Encounters Date Type Department Care Team ([facility] st Contact Info) Description 01/22/2025 9:00 AM EDT Office Visit [facility] [address] [place] [address] Ritu Bardales MD 230 [place] [address] 03/26/2025 9:00 AM EST Medication Management [facility] 230 [place] [address] Haley Clark PharmD [address] [place] [address] documented as of this encounter Goals Goal [...] documented as of this encounter Care Teams Real Estate Acquisition Analyst Relationship Specialty Start Date End Date Ritu Bardales MD [address] [place] [address] PCP - General Family Medicine 05/10/18 Haley Clark, YessyD [address] [place] [address] Pharmacist Internal Medicine 06/25/22 Richard Bernal MD [address] [place] [address] Orthopaedic Surgery 05/07/24 Sun Pak OD [address] [place] [address] Optometry 05/07/24 Edwina Sharma MD [address] 3rd [place] [address] Gastroenterology 05/07/24 Ruben Oconnor [address] [place] [phone] Orthopaedic Surgery 07/18/24 documented as of this encounter
--- OUTSIDE RECORDS SUMMARY | 2025-01-09 09:11 | XMS_ITS | Encounter Summary ---
Author Organization [employer] Address [address] [place] [address] 7 [place] [address] Care Team Providers Care Pediatric Speech Therapist Name Role Phone Ritu Bardales MD Primary Care Provider [phone] Haley Clark PharmD Unavailable Richard Bernal MD Unavailable Sun Pak OD Unavailable Edwina Sharma MD Unavailable [phone] Ruben Oconnor Unavailable Encounter Details Date Type Department Care Team (Late st Contact Info) Description 09/10/2022 Abstract [facility] 230 [place], [place] [phone] Ritu Bardales MD 230 [place], [place] [phone] Social History Tobacco Use Types Packs/Day Years [...] Description 01/22/2025 9:00 AM EDT Office Visit [facility] [address] [place] [address] Ritu Bardales MD [address] [place] [address] 03/26/2025 9:00 AM EST Medication Management [facility] [address] [place] [address] Haley Clark PharmD [address] [place] [address] documented as of this encounter Goals Goal [...] documented as of this encounter Care Teams Pediatric Speech Therapist Relationship Specialty Start Date End Date Ritu Bardales MD [address] [place] [address] PCP - General Family Medicine 05/10/18 Haley Clark, PharmD [address] [place] [address] Pharmacist Internal Medicine 06/25/22 Richard Bernal MD [address] [place] [address] Orthopaedic Surgery 05/07/24 Sun Pak OD [address] [place] [address] Optometry 05/07/24 Edwina Sharma MD [address] [place] [address] Drive 3rd [place] [address] Gastroenterology 05/07/24 Ruben Oconnor [address] [place] [phone] Orthopaedic Surgery 07/18/24 documented as of this encounter
--- OUTSIDE RECORDS SUMMARY | 2025-01-09 09:11 | XMS_ITS | Encounter Summary ---
Author Organization [employer] Address [address] [place] [address] 7 [place] [address] Care Team Providers Care Core Loader Name Role Phone Ritu Bardales MD Primary Care Provider + [phone] Haley Clark PharmD Unavailable [phone] Richard Bernal MD Unavailable Sun Pak OD Unavailable [phone] Edwina Sharma MD Unavailable [phone] Ruben Oconnor Unavailable Reason for Visit * Reason Comments Med Refill Encounter Details Date Type Department Care Team (Late st Contact Info) Description 07/23/2023 Refill [facility] 230 [place], [place] [phone] Sosa Wilson MD 230 [place], [place] [phone] Type 2 diabetes mellitus with hyperglycemia, unspecified whether ocean transportation intermediary insulin use ([facility]) Social History Tobacco Use Types Packs/Day Years [...] the past 12 months, has t he [employer], gas, oil or water [email or web address] threatened to shut off services in your [...] 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 Not on file Not on file Not on file documented as of this encounter Plan of Treatment Upcoming Encounters Date Type Department Care Team (Late st Contact Info) Description 01/22/2025 9:00 AM EDT Office Visit [facility] [address] [place] [address] Ritu Bardales MD [address] [place] [address] 03/26/2025 9:00 AM EST Medication Management [facility] [address] [place] [address] Haley Clark PharmD [address] [place] [address] documented as of this encounter Goals Goal Patient Goal Type Associated Problems Recent Progress Patient-Stated? Author Hemoglobin A1c < 7 Result Component 7(12/26/2024 9:28 AM EDT) No Haley Clark PharmD documented as of this encounter Visit Diagnoses Diagnosis Type 2 diabetes mellitus with hyperglycemia, unspecified whether fpc insulin use ([facility]) documented in this encounter Additional Health Concerns Assessment Noted Time PHQ-9 Depression Total Score: 0 06/08/19 23 9:21 AM EST documented as of this encounter Care Teams Core Loader Relationship Specialty Start Date End Date Ritu Bardales MD 230 [place] [address] PCP - General Family Medicine 05/10/18 Haley Clark PharmD [address] [place] [address] Pharmacist Internal Medicine 06/25/22 Richard Bernal MD [address] [place] [address] Orthopaedic Surgery 05/07/24 Sun Pak OD [address] [place] [address] Optometry 05/07/24 Edwina Sharma MD [address] 3rd [place] [address] Gastroenterology 05/07/24 Ruben Oconnor [address] [place] [phone] Orthopaedic Surgery 07/18/24 documented as of this encounter
== END 2025-01-09 09:07 | disposition home or self-care (01) ==
LOC: HO.HCS 08:34
PROVIDERS: PCP Family Medicine; Visit Provider Internal Medicine
DX: R07.2 Precordial pain (principal); E11.8 Type 2 diabetes mellitus with unspecified complications; I10 Essential (primary) hypertension; E78.5 Hyperlipidemia, unspecified; Z82.49 Family history of ischemic heart disease and other diseases of the circulatory system; R00.1 Bradycardia, unspecified; I49.3 Ventricular premature depolarization
CPT/HCPCS: 93010; 99214

== ENCOUNTER → 2025-01-09 08:33 | Outpatient (BNVA) | payer OTHER, SELFPAY | PROVIDERS: PCP Family Medicine; Visit Provider Internal Medicine | DX: R07.2 Precordial pain (principal) | CPT/HCPCS: 93005 ==

== ENCOUNTER → 2025-02-06 08:38 | Outpatient (REF) | payer OTHER, SELFPAY ==
--- NOTE | 2025-02-06 08:43 | CA_ITS ---
Transthoracic Echocardiogram Patient (Last, First, Middle): Suhas Reynaga, Gender: M Date of : 1960 Age: 64 Procedure Date: 02/06/2025 Procedure Type: Transthoracic Echocardiogram Location: OP Height: 175.26 cm Weight: 87.54 kg BSA: 2.03 m2 Heart Rate: 54 bpm BP: 118 / 70 mmHg Fiberglass Fabricator: SB Referring MD: Hernan Lowe MD Symptoms: R07.2 - Precordial pain Study Quality: Adequate ECG Rhythm: Bradycardia Conclusions: - The left ventricular systolic function is normal. The calculated ejection fraction is 61% by biplane method. - No obvious valvular pathology seen on this study. Findings Left Ventricle Normal left ventricular cavity size. There is normal left ventricular wall thickness. The left ventricular systolic function is normal. The calculated ejection fraction is 61% by biplane method. There is no evidence of regional wall motion abnormalities. Diastolic function is normal for age. Right Ventricle Mildly increased right ventricular cavity size. There is normal right ventricular systolic function. Atria Both atria are normal in size. Aortic Valve There is a normal trileaflet aortic valve. There is no aortic valve stenosis. There is no aortic valve regurgitation. Mitral Valve The mitral valve appears normal. There is trace mitral valve regurgitation. There is no mitral valve stenosis. Pulmonic Valve The pulmonic valve is likely normal. Tricuspid Valve Normal tricuspid valve structure. There is mild tricuspid valve regurgitation. There is no evidence of pulmonary hypertension. Great Vessels The asc aorta is normal in size. Small plaque is seen in the sino tubular ridge. Venous The inferior vena cava is normal in size and collapses greater than 50% with inspiration. Pericardium/Pleural There is no evidence of pericardial effusion. Prior Study Comparison No prior study available for comparison. Recommendations, Care & Conclusions No obvious valvular pathology seen on this study. Measurements 2D Linear Measurements IVSd: 0.83 0.6-0.9/0.6-1.0 cm LVIDd: 5.23 3.9-5.3/4.2-5.9 cm LVIDd Index: 2.58 2.4-3.2/2.2-3.1 cm/m2 LVIDs: 3.58 2.0-3.6 cm LVPWd: 0.98 0.7-1.1 cm LA Diam: 4.10 2.7-3.8/3.0-4.0 cm LAIDs Index: 2.02 1.5-2.3 cm/m2 LV Mass: 213.78 67-162/88-224 g LV Mass Index: 105.31 43-95/49-115 g/m2 LVOT Diam: 2.20 3.0+(-)1.3 cm 2D Systolic Function EF 4C: 58.00 >55% EF 2C: 62.00 >55% EF BiP: 60.60 >55% Mitral Valve MV Pk E: 0.78 MV PK A: 0.58 MV Decel Time: 213.00 E/A: 1.30 E'Lateral: 12.20 E'Medial: 7.40 E/E' Med: 10.50 E/E' Lat: 6.40 PHT: 63.00 MVA PHT: 3.49 Decel [place]: 3.65 Aortic Valve AoV Pk Chip: 1.43 AoV Mn Chip: 1.04 AoV VTI: 0.35 AoV Pk Grad: 8.00 Aov Mn Grad: 5.00 BEATA Cont.VTI: 2.91 LVOT LVOT Pk Chip: 1.07 LVOT Mn Chip: 0.74 LVOT VTI: 0.27 LVOT Pk Grad: 5.00 LVOT Mn Grad: 3.00 LVOT Diam: 2.20 LVOT Area: 3.80 Diastolic Function MV Pk E: 0.78 MV Pk A: 0.58 E/A: 1.30 E'Medial: 7.40 E/E' Med: 10.50 E' Laterial: 12.20 E/E' Lat: 6.40 Right Ventricle TAPSE (mm): 25.70 TVS' Chip: 13.90 Tricuspid Valve TR Pk Chip: 2.14 TR Pk Grad: 18.00 RA Press: 3.00 RVSP: 21.00 Great Vessels Aorta Sinus of Valsalva: 3.10 2.0-3.5 cm Ao Asc: 3.50 2.1-3.4 cm Pulmonary Veins Pulm Vein S/D 0.90 Pulmonary Valve PV Pk Chip: 0.94 Peak PV Grad: 3.00 Updated in Other Vendor System with Status of Final Hernan Lowe MD electronically signed on 02/08/2025 10:32:13 AM with status of Final
--- OUTSIDE RECORDS SUMMARY | 2025-02-06 09:04 | XMS_ITS | Encounter Summary ---
Author Organization [employer] Address [address] [place] [address] 7 [place] [address] Care Team Providers Care Lock Fitter Name Role Phone Ritu Bardales MD Primary Care Provider [phone] Haley Clark PharmD Unavailable Richard Bernal MD Unavailable Sun Pak OD Unavailable Edwina Sharma MD Unavailable [phone] Ruben Oconnor Unavailable Hernan Lowe MD Unavailable [phone] Encounter Details Date Type Department Care Team (Late st Contact Info) Description 09/10/2022 Abstract [facility] MED[facility]INE 230 [place], [place] [phone] Ritu Bardales MD 230 [place], [place] [phone] Social History Tobacco Use Types Packs/Day Years [...] Care Team (Late st Contact Info) Description 03/26/2025 9:00 AM EST Medication Management [facility] 230 [place] [address] Haley Clark PharmD 230 [place] [address] documented as of this encounter Goals Goal Patient Goal Type Associated Problems Recent Progress Patient-Stated? Author Hemoglobin A1c < 7 Result Component 7(12/26/2024 9:28 AM EDT) No Haley Clark PharmD documented as of this encounter Visit Diagnoses Not on filedocumented in this encounter Additional Health Concerns Assessment Noted Time PHQ-9 Depression Total Score: 0 06/08/19 9:21 AM EST documented as of this encounter Care Teams Lock Fitter Relationship Specialty Start Date End Date Ritu Bardales MD 230 [place] [address] PCP - General Family Medicine 05/10/18 Haley Clark PharmD 230 [place] [address] Pharmacist Internal Medicine 06/25/22 Richard Bernal MD [address] [place] [address] Orthopaedic Surgery 05/07/24 Sun Pak OD [address] [place] [address] Optometry 05/07/24 Edwina Sharma MD [address] 3rd [place] [address] Gastroenterology 05/07/24 Ruben Oconnor [address] [place] [phone] Orthopaedic Surgery 07/18/24 Hernan Lowe MD [address] [place] [address] 3rd [place] [address] Cardiology 01/10/25 documented as of this encounter
--- OUTSIDE RECORDS SUMMARY | 2025-02-06 09:05 | XMS_ITS | Encounter Summary ---
Author Organization [employer] Address [address] [place] [address] 7 [place] [address] Care Team Providers Care Mounting Machine Operator Name Role Phone Ritu Bardales MD Primary Care Provider [phone] Haley Clark PharmD Unavailable Richard Bernal MD Unavailable Sun Pak OD Unavailable Edwina Sharma MD Unavailable [phone] Ruben Oconnor Unavailable Hernan Lowe MD Unavailable Reason for Visit * Reason Comments Med Refill Encounter Details Date Type Department Care Team (Late st Contact Info) Description 04/22/2022 Refill [facility] 230 [place] [address] Haley Clark, PharmD 230 [place] [address] Type 2 diabetes mellitus without complication, without long-term current use of insulin ([facility]) Social History Tobacco Use Types Packs/Day Years [...] 9:00 AM EST Medication Management [facility] [address] [place] [address] Haley Clark PharmD [address] [place] [address] documented as of this encounter Visit Diagnoses Diagnosis Type 2 diabetes mellitus without complication, without long-term current use of insulin ([facility]) documented in this encounter Care Teams Mounting Machine Operator Relationship Specialty Start Date End Date Ritu Bardales MD 230 [place] [address] PCP - General Family Medicine 05/10/18 Haley Clark PharmD [address] [place] [address] Pharmacist Internal Medicine 06/25/22 Richard Bernal MD [address] [place] [address] Orthopaedic Surgery 05/07/24 Sun Pak OD 267 [place] [address] Optometry 05/07/24 Edwina Sharma MD [address] 3rd [place] [address] Gastroenterology 05/07/24 Ruben Oconnor [address] [place] [phone] Orthopaedic Surgery 07/18/24 Hernan Lowe MD [address] [place] [address] 3rd [place] [address] Cardiology 01/10/25 documented as of this encounter
--- OUTSIDE RECORDS SUMMARY | 2025-02-06 09:05 | XMS_ITS | Encounter Summary ---
Author Organization [employer] Address [address] [place] [address] 7 [place] [address] Care Team Providers Care Ornamental Iron Worker Apprentice Name Role Phone Ritu Bardales MD Primary Care Provider + [phone] Haley Clark PharmD Unavailable Richard Bernal MD Unavailable Sun Pak OD Unavailable Edwina Sharma MD Unavailable [phone] Ruben Oconnor Unavailable Hernan Lowe MD Unavailable Encounter Details Date Type Department Care Team (Late st Contact Info) Description 05/12/2023 Orders Only [facility] 230 [place], [place] [phone] Ritu Bardales MD 230 [place], [place] [phone] Social History Tobacco Use Types Packs/Day Years [...] the past 12 months, has t he [employer], gas, oil or water [employer] threatened to shut off services in your [...] 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 Not on file Not on file Not on file documented as of this encounter Plan of Treatment Upcoming Encounters Date Type Department Care Team (Late st Contact Info) Description 03/26/2025 9:00 AM EST Medication Management [facility] 230 [place] [address] Haley Clark PharmD 230 [place] [address] documented as of this encounter Goals Goal Patient Goal Type Associated Problems Recent Progress Patient-Stated? Author Hemoglobin A1c < 7 Result Component 7(12/26/2024 9:28 AM EDT) No Haley Clark, PharmD documented as of this encounter Visit Diagnoses Not on filedocumented in this encounter Additional Health Concerns Assessment Noted Time PHQ-9 Depression Total Score: 0 06/08/19 23 9:21 AM EST documented as of this encounter Care Teams Ornamental Iron Worker Apprentice Relationship Specialty Start Date End Date Ritu Bardales MD [address] [place] [address] PCP - General Family Medicine 05/10/18 Haley Clark, YessyD 230 [place] [address] Pharmacist Internal Medicine 06/25/22 Richard Bernal MD [address] [place] [address] Orthopaedic Surgery 05/07/24 Sun Pak OD 267 [place] [address] Optometry 05/07/24 Edwina Sharma MD [facility] 3rd [place] [address] Gastroenterology 05/07/24 Ruben Oocnnor [address] [place] [phone] Orthopaedic Surgery 07/18/24 Hernan Lowe MD [address] [address] Cardiology 01/10/25 documented as of this encounter
--- OUTSIDE RECORDS SUMMARY | 2025-02-06 09:05 | XMS_ITS | Encounter Summary ---
Author Organization [employer] Address [address] [place] [address] 7 [place] [address] Care Team Providers Care Crane Helper Name Role Phone Ritu Bardales MD Primary Care Provider Haley Clark PharmD Unavailable Richard Bernal MD Unavailable Sun Pak OD Unavailable Edwina Sharma MD Unavailable [phone] Ruben Oconnor Unavailable Hernan Lowe MD Unavailable [phone] Reason for Visit * Reason Comments Med Refill Encounter Details Date Type Department Care Team (Late st Contact Info) Description 07/23/2023 Refill [facility] [address] [place], [place] [phone] Sosa Wilson MD [address] [place], [place] [phone] Type 2 diabetes mellitus with hyperglycemia, unspecified whether senior living insulin use ([facility]) Social History Tobacco Use Types [...] 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 Not on file Not on file Not on file documented as of this encounter Plan of Treatment Upcoming Encounters Date Type Department Care Team ([facility] st Contact Info) Description 03/26/2025 9:00 AM EST Medication Management [facility] [address] [place] [address] Haley Clrak PharmD [address] [place] [address] documented as of this encounter Goals Goal Patient Goal Type Associated Problems Recent Progress Patient-Stated? Author Hemoglobin A1c < 7 Result Component 7(12/26/2024 9:28 AM EDT) No Haley Clark, PharmWild documented as of this encounter Visit Diagnoses Diagnosis Type 2 diabetes mellitus with hyperglycemia, unspecified whether intermediate school teacher insulin use (HCC) documented in this encounter Additional Health Concerns Assessment Noted Time PHQ-9 Depression Total Score: 0 06/08/19 23 9:21 AM EST documented as of this encounter Care Teams Crane Helper Relationship Specialty Start Date End Date Ritu Bardales MD [address] [place] [address] PCP - General Family Medicine 05/10/18 Haley Clark, YessyD [address] [place] [address] Pharmacist Internal Medicine 06/25/22 Richard Bernal MD [address] [place] [address] Orthopaedic Surgery 05/07/24 Sun Pak OD [address] [place] [address] Optometry 05/07/24 Edwina hSarma MD [address] [place] [address] Gastroenterology 05/07/24 Ruben Oconnor [address] [place] [phone] Orthopaedic Surgery 07/18/24 Hernan Lowe MD [address] [place] [address] Cardiology 01/10/25 documented as of this encounter
--- OUTSIDE RECORDS SUMMARY | 2025-02-06 09:05 | XMS_ITS | Encounter Summary ---
Author Organization [employer] Address [address] [place] [address] 7 [place] [address] Care Team Providers Care Russian Teacher Name Role Phone Ritu Bardales MD Primary Care Provider [phone] Haley Clark PharmD Unavailable Richard Beranl MD Unavailable Sun Pak OD Unavailable Edwina Sharma MD Unavailable [phone] Ruben Oconnor Unavailable Herann Lowe MD Unavailable Reason for Visit * Reason Comments Med Refill Encounter Details Date Type Department Care Team (Late st Contact Info) Description 02/04/2025 Refill [facility] [address] [place], [place] [phone] Ritu Bardales MD [address] [place], [place] [phone] Hypercholesterolemia Social History Tobacco Use Types Packs/Day Years [...] 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 Not on file Not on file Not on file documented as of this encounter Plan of Treatment Upcoming Encounters Date Type Department Care Team (Late st Contact Info) Description 03/26/2025 9:00 AM EST Medication Management [facility] [address] [place], [place] [phone] Haley Clark, PharmD [address] [place] [address] documented as of this encounter Goals Goal Patient Goal Type Associated Problems Recent Progress Patient-Stated? Author Hemoglobin A1c < 7 Result Component 7(12/26/2024 9:28 AM EDT) No Haley Clark, PharmD documented as of this encounter Visit Diagnoses Diagnosis Hypercholesterolemia Pure hypercholesterolemia documented in this encounter Additional Health Concerns Assessment Noted Time PHQ-9 Depression Total Score: 0 08/16/19 9:10 AM EDT documented as of this encounter Care Teams Russian Teacher Relationship Specialty Start Date End Date Ritu Bardales MD [address] [place] [address] PCP - General Family Medicine 05/10/18 Haley Clark, PharmD [address] [place] [address] Pharmacist Internal Medicine 06/25/22 Richard Bernal MD [address] [place] [address] Orthopaedic Surgery 05/07/24 Sun Pak OD [address] [place] [address] Optometry 05/07/24 Edwina Sharma MD [address] [place] [address] Gastroenterology 05/07/24 Ruben Oconnor [address] [place] [phone] Orthopaedic Surgery 07/18/24 Hernan Lowe MD [address] [place] [address] Cardiology 01/10/25 documented as of this encounter
--- OUTSIDE RECORDS SUMMARY | 2025-02-06 09:05 | XMS_ITS | Clinical Summary ---
Author Organization [employer] Address [address] [place] [address] [address] [place] [address] Care Team Providers Care Healthcare Account Manager Name Role Phone Ritu Bardales MD Primary Care Provider [phone] Haley Clark PharmD Unavailable Richard Bernal MD Unavailable Sun Pak OD Unavailable [phone] Edwina Sharma MD Unavailable [phone] Ruben Oconnor Unavailable Hernan Lowe MD Unavailable Allergies Active Allergy Reactions Criticality Noted Date Comments Hussein Inhibitors Angioedema High 06/14/2014 Per [facility] note, patient seen in ER for angioedema believed to be secondary to ACEi Medications Alcohol Swabs (Alcohol Prep) 70 % padsIndications: Type 2 diabetes mellitus with hyperglycemia, unspecified whether terminologist insulin use (HCC) Use three times daily 100 each 11 024 Active tadalafil (Cialis) 10 MG tabletIndication s:Erectile dysfunction, unspecified erectile dysfunction type Take 1 tablet (10 mg) by mouth if needed each day for erectile dysfunction. 10 tablet 025 Active TRUEplus Lancets 33G miscIndications: Type 2 diabetes mellitus with hyperglycemia, unspecified whether penitentiary insulin use (HCC) TEST BLOOD SUGAR TWICE DAILY 100 each 11 025 Active pen needle 32G x 4 mm miscIndications: Type 2 diabetes mellitus with hyperglycemia, unspecified whether penitentiary insulin use (HCC) Use as instructed with once daily insulin administration 100 each 3 025 2025 Active insulin glargine (Lantus SoloStar) 100 UNIT/ML penIndications:T ype 2 diabetes mellitus with diabetic neuropathy, with long-term current use of insulin ([facility]) Inject subcutaneously 12 units once daily in the morning Active Multiple Vitamin (Multivitamin) tabletIndication s:Type 2 diabetes mellitus without complication, without long-term current use of insulin ([facility]) TAKE 1 TABLET BY MOUTH EVERY DAY 90 tablet 025 Active tamsulosin (Flomax) 0.4 MG 24 hr capsuleIndicatio ns:Benign prostatic hyperplasia without lower urinary tract symptoms TAKE 1 CAPSULE BY MOUTH EVERY DAY 90 capsule 025 Active amLODIPine (Norvasc) 5 MG tabletIndication s:Primary hypertension TAKE 1 TABLET BY MOUTH EVERY DAY 90 tablet 025 Active magnesium oxide 250 MG tabletIndication s:Primary insomnia TAKE 2 TABLETS BY MOUTH EVERY DAY BEFORE BEDTIME 180 tablet Active glucose (Glutose 15) 40 % gel oral gelIndications:T ype 2 diabetes mellitus with hyperglycemia, unspecified whether terminologist insulin use ([facility]) USE FOR BLOOD SUGAR LESS THAN 60 MG / dl (LOW BLOOD SUGAR) 37.5 g 1 Active FREESTYLE LITE test strip TEST BLOOD SUGAR TWICE DAILY 100 strip Active metFORMIN XR (Glucophage-XR) 500 MG 24 hr tabletIndication s:Type 2 diabetes mellitus with hyperglycemia ([facility]) TAKE 1 TABLET BY MOUTH TWICE DAILY, DO NOT BREAK, CRUSH, DISSOLVE OR CHEW 180 tablet Active Diclofenac Sodium 1 % gelIndications:P recordial pain Apply topically tid prn pain 50 g 025 Active atorvastatin (Lipitor) 80 MG tabletIndication s:Hypercholester olemia TAKE 1 TABLET BY MOUTH EVERY DAY 30 tablet 025 Active atorvastatin (Lipitor) 80 MG tabletIndication s:Hypercholester olemia Take 1 tablet (80 mg) by mouth Once per day. Dose increased 01/21/24 30 tablet 024 2024 Discontinued metFORMIN XR (Glucophage-XR) 500 MG 24 hr tablet TAKE 1 TABLET BY MOUTH TWICE DAILY, DO NOT BREAK, CRUSH, DISSOLVE OR CHEW 025 2024 Discontinued Active Problems Patient Care Coordination No te Formatting of this note migh t be different from the original. [facility] DM clinic with Haley Clark, YessyD, GUERDA Problem Noted Date Diagnosed Date Chest pain 09/04/2024 Overview (01/22/2025): EKG today showed sinus bradycardia at 46 bpm. Although current chest pain is likely costocondritis from 200 push-ups a day, pt also had an episode more concerning for cardiac etiology 2 months ago. -Given family history and risk factors, cardiology referral placed 09/04/24 -Followed by Dr. Hernan Lowe of [facility] seen 01/09/25 CT Cardiac Coronary Angio and echo transthoracic ordered . 01/22/25 pt's history is more consistent with precordial pain. Will try Diclofenac gel 01/22/25. Assessment & Plan (01/22/2025 10:28 AM EDT): EKG today showed sinus bradycardia at 46 bpm. Although current chest pain is likely costocondritis from 200 push-ups a day, pt also had an episode more concerning for cardiac etiology 2 months ago. -Given family history and risk factors, cardiology referral placed 09/04/24 -Followed by Dr. Hernan Lowe of [facility] seen 01/09/25 CT Cardiac Coronary Angio and echo transthoracic ordered . 01/22/25 pt's history is more consistent with precordial pain. Will try Diclofenac gel 01/22/25. Orders: Diclofenac Sodium 1 % gel; Apply topically tid prn pain Assessment & Plan (09/04/2024 2:25 PM EDT): [...] and phsycial activity recommendations. Assessment & Plan (01/22/2025 10:28 AM EDT): Lifestyle modification discussed including nutrition stratgeies and phsycial activity recommendations. Assessment & Plan (09/04/2024 2:19 PM EDT): Lifestyle modification discussed including nutrition stratgeies and phsycial activity recommendations. Assessment & Plan (01/21/2024 9:36 AM EDT): Lifestyle modification discussed including nutrition stratgeies and phsycial activity recommendations. Assessment & Plan (10/08/2023 9:10 AM EDT): Lifestyle modification discussed including nutrition stratgeies and phsycial activity recommendations. Other specified health status 01/25/2023 Overview (09/04/2024): -next comprehensive annual evaluation due after 05/22/25 [facility] -Health care proxy completed on 10/08/23 Assessment & Plan (08/16/2023 9:48 AM EDT): -next physical exam due after 01/26/2024. -[facility] -Health care proxy given on 08/16/2023 Assessment & Plan (01/25/2023 9:26 AM EDT): -next physical exam due after 01/26/2024. -[facility] [place] [facility] Benign prostatic hyperplasia without lower urinary tract [...] low back pain without sciatica 022 Overview (01/22/2025): Pt having episodes of severe mid back [...] -Referred to PT for message therapy at [facility] 01/21/24 - Referral to Orthopaedic Surgery 05/22/24, pt was told hip is balanced but MRI was not covered because he did not have x ray first. -Discussed calling Orthopedics 09/04/24 -prescribed Diclofenac gel 01/22/25, encouraged to get back in to see Orthopedics if pain worsens or persists. Assessment & Plan (01/22/2025 10:28 AM EDT): Pt having episodes of severe [...] -Referred to PT for message therapy at [facility] 01/21/24 - Referral to Orthopaedic Surgery 05/22/24, pt was told hip is balanced but MRI was not covered because he did not have x ray first. -Discussed calling Orthopedics 09/04/24 -prescribed Diclofenac gel 01/22/25, encouraged to get back in to see Orthopedics if pain worsens or persists. Assessment & Plan (09/04/2024 2:26 PM EDT): [...] -Referred to PT for message therapy at [facility] 01/21/24 - Referral to Orthopaedic Surgery 05/22/24, [...] -Referred to PT for message therapy at [facility] 01/21/24 - Referral to Orthopaedic Surgery 05/22/24 [...] -Referred to PT for message therapy at [facility] 01/21/24 Assessment & Plan (08/16/2023 9:49 AM [...] 03/2022 Diabetes mellitus, type 2 11/05/2011 Overview (01/22/2025): Diabetes is not controlled. Will return to Collaborative Drug Therapy Managment Program with our YessyDGUERDA. Lab Results Component Value Date HGBA1C 7.0 (A) 12/26/2024 HGBA1C 8.7 (A) 09/04/2024 HGBA1C 9.0 (A) 08/29/2024 Lab Results Component Value Date CREATININE 1.21 01/05/2025 EGFR >60 01/05/2025 MICROALBCREU 6.2 01/05/2025 MICROALBCREU 10.6 01/04/2024 LDLCHOLCAL 81 11/08/2024 -Hussein/Arb: None due to allergy. -Statin therapy: [...] twice daily by [facility]. - Seen at [facility] 07/03/23 for hyperglycemia; no medication changes. [...] 12 units once daily Assessment & Plan (01/22/2025 10:28 AM EDT): Diabetes is not controlled. Will return to Collaborative Drug Therapy Managment Program with our GUERDA Owusu. Lab Results Component Value Date HGBA1C 7.0 (A) 12/26/2024 HGBA1C 8.7 (A) 09/04/2024 HGBA1C 9.0 (A) 08/29/2024 Lab Results Component Value Date CREATININE 1.21 01/05/2025 EGFR >60 01/05/2025 MICROALBCREU 6.2 01/05/2025 MICROALBCREU 10.6 01/04/2024 LDLCHOLCAL 81 11/08/2024 -Hussein/Arb: None due to allergy. -Statin therapy: [...] twice daily by CDTM. - Seen at [facility] 07/03/23 for hyperglycemia; no medication changes. [...] to increase to 12 units once daily Orders: POCT Glucose Assessment & Plan (09/04/2024 2:19 PM EDT): [...] twice daily by CD[facility]. - Seen at [facility] 07/03/23 for hyperglycemia; no medication changes. [...] to 80mg -Diabetic eye exam: 04/21/2022 with [facility]. Encouraged to schedule Eye exam 10/08/23, no [...] Collaborative Drug Therapy Managment Program with our YessyDGUERDA 05/22/24 Assessment & Plan (01/21/2024 10:38 AM [...] to 80mg -Diabetic eye exam: 04/21/2022 with [facility]. Encouraged to schedule Eye exam 10/08/23, no [...] atorvastatin 40mg -Diabetic eye exam: 04/21/2022 with [facility]. Encouraged to schedule Eye exam 10/08/23 -Diabetic foot exam: 10/08/23 -Continue lifestyle modifications -trulicity 1.5 weekly self discontinue 08/16/23 due to weight loss -Now off lantus due to well controlled BS -Continue metformin ER 750 daily. -Patient has graduated from [facility] as of 10/01/23 with two consecutive A1C [...] atorvastatin 40mg -Diabetic eye exam: 04/21/2022 with [facility] -Diabetic foot exam: 01/25/2023 -Continue lifestyle modifications -Continue trulicity 1.5 weekly. -Now off lantus due to well controlled BS -Continue metformin ER 750 daily. -Followed in [facility]. Pt will continue to work with [facility] to ween off insulin. Assessment & Plan [...] atorvastatin 40mg -Diabetic eye exam: 04/21/2022 with [facility] -Diabetic foot exam: 01/25/2023 -Continue lifestyle modifications [...] moderate physical activity discussed. Assessment & Plan (01/22/2025 10:28 AM EDT): BP at goal 01/22/25 Followed by [facility], BP is controlled. -PT HAS [...] EDT): BP at goal. Now followed by [facility], BP is controlled. -PT HAS ALLERGY TO HUSSEIN INHIBITOR -Importance of low-sodium diet and regular moderate physical activity discussed. Assessment & Plan (01/21/2024 9:20 AM EDT): BP at goal. Now followed by CD, BP is controlled. -PT HAS ALLERGY TO HUSSEIN INHIBITOR -Importance of low-sodium diet and regular moderate physical activity discussed. Assessment & Plan (08/16/2023 9:41 AM EDT): Now followed by [facility], BP is controlled. -PT HAS ALLERGY TO HUSSEIN INHIBITOR -Importance of low-sodium diet and regular moderate physical activity discussed. Assessment & Plan (01/25/2023 9:05 AM EDT): Now followed by [facility], BP is controlled. -PT HAS ALLERGY TO HUSSEIN INHIBITOR -Importance of low-sodium diet and regular moderate physical activity discussed. Assessment & Plan (09/15/2022 7:06 AM EDT): Now followed by [facility], BP is controlled. -PT HAS ALLERGY TO HUSSEIN INHIBITOR -continue amlodipine 5mg daily -Importance of low-sodium diet and regular moderate physical activity discussed. Assessment & Plan (06/05/2022 6:04 PM EST): Now followed by [facility], BP is controlled. -PT HAS ALLERGY TO HUSSEIN INHIBITOR -Importance of low-sodium diet and regular moderate physical activity discussed. Resolved Problems Problem Noted Date Diagnosed Date Resolved Date Dietary counseling 09/04/2024 Assessment & Plan [...] saturated fat, and sodium. Exercise counseling 09/04/2024 01/11/20 Assessment & Plan (09/04/2024 2:20 PM EDT): Exercise Recommendations: At least 150 minutes of moderate-intensity physical activity per week, or an equivalent combination of moderate- and vigorous-intensity activity. Type 2 diabetes mellitus wit h diabetic neuropathy, with long-term current use of insulin 01/17/2024 05/07/2024 Back pain 10/08/2023 01/22/2025 Overview (07/18/2024): Pt having episodes of severe [...] to Chiropractor per patient's request 10/08/23 - [facility] spine for a steroid injection [...] -Referred to Chiropractor per patient's request 10/08/23 Urinary frequency 06/04/2022 01/25/2023 Overview (01/25/2023): Declines [...] Encounters Date Type Department Care Team Description 02/04/2025 Refill [facility] [place] [address] Ritu Bardales MD Hypercholesterolemia 01/22/2025 9:00 AM EDT Office Visit [facility] [place] [address] Ritu Bardales MD Impingement of left shoulder (Primary Dx); Precordial pain; Primary hypertension; Type 2 diabetes mellitus with hyperglycemia, unspecified whether terminologist insulin use (CMS/HCC); Chronic bilateral low back pain without sciatica; BMI 29.0-29.9,adult; Dietary counseling; Exercise counseling 01/22/2025 Travel 01/19/2025 Telephone [facility] [place] [address] Ritu Bardales MD CHART PREP 01/16/2025 Refill [facility] [place] [address] Haley Clark PharmD Type 2 diabetes mellitus with hyperglycemia (CMS/HCC) 01/09/2025 Refill [facility] [address] [facility] [place] [address] Ritu Bardales MD 01/05/2025 Orders Only [facility] [address] Ritu Bardales MD 12/27/2024 Orders Only [facility] [address] [place] [address] Ritu Bardales MD Type 2 diabetes mellitus with hyperglycemia, unspecified whether terminologist insulin use (CMS/HCC) (Primary Dx) 12/26/2024 Telephone [facility] [address] [place] [address] Haley Clark, PharmD 12/26/2024 Travel 12/05/2024 Telephone [facility] [address] [place] [address] Haley Clark, PharmD from Last 3 Months Immunizations Immunization Administration [...] 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 Not on file Not on file Not on file Last Filed Vital Signs Vital Sign Reading Time Taken Comments Blood Pressure 138/68 01/22/2025 9:05 AM EDT Pulse 55 01/22/2025 9:05 AM EDT Temperature 36 C (96.8 F) 01/22/2025 9:05 AM EDT Respiratory Rate 20 01/22/2025 9:05 AM EDT Oxygen Saturation 99% 01/22/2025 9:05 AM EDT Inhaled Oxygen Concentration - - Weight 89.5 kg (197 lb 6.4 oz) 01/22/2025 9:05 A M EDT Height 175.3 cm (5' 9 ) 01/22/2025 9:05 AM EDT Body Mass Index 29.15 01/22/2025 9:05 AM EDT Plan of Treatment Upcoming Encounters Date Type Department Care Team (Late st Contact Info) Description 03/26/2025 9:00 AM EST Medication Management [facility] [address] [place] [address] Haley Clark, PharmD [address] [place] [address] Health Maintenance Due Date Last Done Comments CT Colonography 1960 FIT DNA/Cologuard 1960 FIT 1960 FOBT 1960 Sigmoidoscopy 1960 COVID-19 Vaccine ( season) 2025 08/16/2023, 09/14/2022, 06/25/2021, Additional history exists Influenza Vaccine (#1) 2025 , 01/25/2023, 01/19/2022, Additional history exists Diabetes: Hemoglobin A1C 03/28/2025 025, 09/04/2024, 08/29/2024, Additional history exists Diabetes: Foot Exam 05/22/2025 05/22/2024, 05/22/2024, 05/22/2024, Additional history exists Depression Screening 09/04/2025 09/04/2024, 08/16/19 Disability Screening 09/04/2025 09/04/2024 SDOH Screening 09/04/2025 09/04/2024 Lipid Panel 11/08/2025 11/08/2024, 02/07, 01/04/2024, Additional history exists Diabetes: Urine Protein Screening 01/05/2026 01/05/2025, 01/04/2024 Alcohol/Substance Use Screening 01/22/2026 01/22/2025 Tobacco Screening 01/22/2026 01/22/2025 Eye Exam 08/10/2026 08/10/2024, 04/0 07/2024, 08/10/2024, [...] Name Priority Date/Time Associated Diagnosis Comments POCT GLUCOSE Routine 01/22/2025 9:07 AM EDT Type 2 diabetes mellitus with hyperglycemia, unspecified whether terminologist insulin use ([facility]) BASIC METABOLIC PANEL Routine 01/05/2025 1:25 PM EDT ALBUMIN, RANDOM URINE W/CREATININE Routine 01/05/2025 1:25 PM EDT POCT GLYCATED HEMOGLOBIN, TOTAL Routine 12/26/2024 9:28 AM EDT Type 2 diabetes mellitus with diabetic neuropathy, with long-term current use of insulin ([facility]) VITAMIN B12 Routine 11/08/2024 8:27 [...] Recently Relevant to Health Maintenance Results * POCT Glucose (01/22/2025 9:07 AM EDT) Glucose Blood, POC 167 60 - 200 mg/dL QC Media Lot # [id number] Lot# Expiration Date [id number] Blood Capillary blood specimen / Unknown 01/22/2025 9:07 AM EDT Ritu Bardales MD POINT OF CARE TEST ENTER/E DIT ORDERABLES Final Result * Albumin, Random Urine W/Creatinine (01/05/2025 1:25 PM EDT) Creatinine, Urine 208.74 mg/dL [facility] Microalbumin Urine 13.0 mg/L [facility] Microalbum Creatinine Ratio Ur 6.2 <30 ug/mg cr [facility] Comment:Albumin/Creatinine R atio Reference Ranges: Normal: < 30 ug/mg creatinine Microalbuminuria: 30 - 300 ug/mg creatinineClinical Albuminuria: > 300 ug/mg creatinine 01/05/2025 1:25 PM EDT 01/05/2025 4:10 PM EDT Ritu Bardales MD LAB URINE ORDERABLES Final Result Performing Organization Address [facility]/ZIP Co de Phone Number [facility] [address] [place] [phone] * (ABNORMAL) Basic Metabolic Panel (01/05/2025 1:25 PM EDT) Sodium 142 135 - 145 mmol/L [facility] Potassium 4.4 3.3 - 5.1 mmol/L [facility] Chloride 107 96 - 108 mmol/L [facility] Carbon Dioxide 28 22 - 29 mmol/L [facility] Anion Gap 11(L) 12 - 20 [facility] Urea Nitrogen (BUN) 16 9 - 16 mg/dL [facility] Creatinine, Serum 1.21 0.5 - 1.4 mg/dL [facility] Estimated Glomerular Filt Rate >60 [facility] Comment:Chronic Kidney Disea se: Estimated GFR < 60 mL/min/[id number] Kidney Disease: Estimated GFR < 15 mL/min/1.73m2 Glucose 110 60 - 115 mg/dL [facility] Calcium 9.2 8.4 - 10.2 mg/dL [facility] 01/05/2025 1:25 PM EDT 01/05/2025 5:25 PM EDT Ritu Bardales MD LAB BLOOD ORDERABLES Final Result Performing Organization Address [facility]/ZIP Co de Phone Number [facility] [address] [place] [address] [phone] * (ABNORMAL) POCT A1c (12/26/2024 9:28 AM EDT) Pathologist [facility] Hemoglobin A1C 7.0(A) 4.0 - 5.7 % QC Media Lot # [id number] Lot# Expiration Date [id number] Blood 12/26/2024 9:28 AM EDT Ritu Bardales MD POINT OF CARE TEST ENTER/E DIT ORDERABLES Final Result * Vitamin B12 (11/08/2024 8:27 AM EDT) Pathologist [facility] Vitamin B12 391 200 - 900 pg/mL [facility] Comment:NORMAL 200-900 PG/ML INDETERMINATE 160-199 PG/ML DEFICIENT < 160 PG/ML 11/08/2024 8:27 AM EDT 11/08/2024 11:51 AM EDT Ritu Bardales MD LAB BLOOD ORDERABLES Final Result [facility] [address] [place] [phone] * Lipid Panel, Standard (11/08/2024 8:27 AM EDT) Pathologist [facility] Triglycerides 72 <150 mg/dL [facility] Comment:Desirable Triglyceri de: less than 150 mg/dLBorderline High Triglyceride 150-199 mg/dLHigh Triglyceride: 200-499 mg/dLVery High Triglyceride: greater than or equal to 5OO mg/dL Cholesterol 144 <200 mg/dL [facility] Comment:Desirable Cholestero l: less than 200 mg/dLBorderline High Cholesterol: 200-239 mg/dLHigh Cholesterol: greater than 239 mg/dL LDL Cholesterol Calculated 81 <100 mg/dL [facility] Comment:Desirable LDL: less than 100 mg/dLNear Optimal/Above Optimal LDL: 110- 129 mg/dLBorderline High LDL: 130-159 mg/dLHigh LDL: 160-189 mg/dLVery High LDL: greater than or equal to 190 mg/dL HDL Cholesterol 49 >40 mg/dL [facility] Comment:Desirable HDL: great er than 40 mg/dL Note: This HDL assay may give artificially low results in patients with liver disease. 11/08/2024 8:27 AM EDT 11/08/2024 11:51 AM EDT Ritu Bardales MD LAB BLOOD ORDERABLES Final Result [facility] [address] [place] [phone] [phone] * Hepatitis C Antibody with Reflex to HCV, RNA, Quantitative, Real-Time PCR (05/21/2022 9:06 AM EST) Pathologist [facility] Hepatitis C Antibody NON-REACT MARINA NON-REACT MARINA [facility] [employer] Index <0.02 <1.00 [facility] Comment: HCV antibody was non-reactive. There is no laboratory evidence of HCV infection. In most cases, no further action is required. However, if recent HCV exposure is suspected, a test for HCV RNA (test code 64897) is suggested. For additional information please refer to http://education.Abazab/faq/QAI07o4 (This link is being provided for informational/ educational purposes only.) Blood Venous blood specimen / Unknown 05/21/2022 9:06 AM EST 05/21/2022 9:06 AM EST Narrative [facility] - 05/22/2022 3:38 PM EST FASTING:YES FASTING: YES Ritu Bardales MD LAB BLOOD ORDERABLES Final Result [facility] [address] [place] [address], [facility], [place] [phone] [facility] [address] [facility], ([address]) [place] [phone] * HIV-1 RNA, Quantitative, Real-Time PCR (05/21/2022 9:06 AM EST) HIV 1 RNA, QN PCR NOT DETECTED NOT DETECTED copies/mL [employer] [facility] [employer] HIV 1 RNA, QN PCR NOT DETECTED NOT DETECTED Log copies/mL [facility] Comment: This test was performed using Real-Time Polymerase Chain Reaction. Reportable Range: 20 copies/mL to 10,000,000 copies/mL (1.30 log copies/mL to 7.00 log copies/mL). Blood Venous blood specimen / Unknown 05/21/2022 9:06 AM EST 05/21/2022 9:06 AM EST Narrative [facility] - 05/22/2022 3:38 PM EST FASTING:YES FASTING: YES Ritu Bardales MD LAB BLOOD ORDERABLES Final Result [facility] [address] [place] [address] [facility] [address] [facility], ([address]) [place] [address] * Inpatient consult to Ophthalmology (04/21/2022 9:45 AM EST) Esdras Stuart MD INPATIENT CONSULT ORDERAB LES Final Result * Colonoscopy (12/15/2021) Pathologist [facility] Colonoscopy tubular adenoma with Dr. 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 Advance Directives and Living Will 10/08/2023 HEALTHCARE PROXY 09/09 06/02 Care Teams Healthcare Account Manager Relationship Specialty Start Date End Date Morrill, MD Ritu [address] [place] [address] PCP - General Family Medicine 05/10/18 Haley Clark, YessyD [address] [place] [address] Pharmacist Internal Medicine 06/25/22 Richard Bernal MD [address] [place] [address] Orthopaedic Surgery 05/07/24 Sun Pak OD [address] [place] [address] Optometry 05/07/24 Edwina Sharma MD [address] [place] [address] Gastroenterology 05/07/24 Ruben Oconnor [address] [place] [phone] Orthopaedic Surgery 07/18/24 Hernan Lowe MD [address] [place] [id number] Cardiology 01/10/25
== END ==
LOC: HO.CARD 08:38
PROVIDERS: PCP Family Medicine; Visit Provider Internal Medicine
DX: R07.2 Precordial pain (principal)
CPT/HCPCS: 93306

== ENCOUNTER → 2025-02-06 08:43 | Outpatient (BNV) | payer OTHER, SELFPAY | PROVIDERS: PCP Family Medicine; Visit Provider Internal Medicine | DX: R94.31 Abnormal electrocardiogram [ECG] [EKG] (principal); R07.2 Precordial pain | CPT/HCPCS: 93306 ==

== ENCOUNTER 2025-04-16 08:21 | Outpatient (AMB) | payer OTHER, SELFPAY ==
--- NOTE | 2025-04-16 08:25 | A.OFFVIS_ITS ---
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 Patient reports that his symptoms have been present for about a year now, he feels that he may have injured it while working out/lifting weights. He is unable to directly identify an injury to his symptoms. He has been taking tylenol which has helped. He has some limited above the head ROM. 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 He states the l eft shoulder has been bothering him for about a year with overt head reaching and lifting. He has pain with driving while reaching . Motions with sweeping or mopping cause pain. Reaching behind back cause difficulty He did PT for the left shoulder last year. [facility] Medical History (Updated 04/16/25 @ 09:11 by Evelio Haq PA-C) Back pain Diabetes Hypertension Elevated cholesterol Surgical History History of esophagogastroduodenoscopy (EGD) Hx of colonoscopy H/O hand surgery History of repair of right rotator cuff (~11/08/19) Family History (Updated 01/09/25 @ 08:42 by Erinn Gill CMA) Father Diabetes Heart disease Stroke Mother Asthma attack Brother Heart attack Social History (Updated 01/09/25 @ 08:43 by Erinn Gill CMA) Household Members Other:: single Alcohol intake: never Patient Tobacco Use Status: Former Tobacco user Advance Directives Date on File: 02/08/20 Current occupational status: employed Current occupation: [employer]- [employer] Review of Systems Const All systems reviewed & are unremarkable except as noted in HPI and below Physical Exam Vital Signs: BMI result Body Mass Index 28.5 Const General: cooperative and no acute distress Orientation/consciousness: patient oriented x3 Resp Effort & Inspection: normal respiratory effort and able to speak in complete sentences Cardio Peripheral pulses: Peripheral pulses 2+ throughout Neuro General: patient oriented x3 Extrem Other: Left shoulder full range of motion in all planes. He has tenderness over the proximal biceps tendon and pain with Telles. He is able to initiate rotator cuff strength but he has significant pain with empty can and lift-off. Neurovascularly intact. Office Procedures AMB Joint Injection/Aspiration Joint Injection/Aspiration Primary Site: Left Shoulder Prep: site was prepped using aseptic technique, ethochloride spray was applied and injection warnings given Injected: 40 mg of, Decadron, with 3 mL of, 1% plain Lidocaine, 0.25% Bupivacaine and in the subcromial space Approach Used: posterolateral Procedure: The patient tolerated the procedure well and there was some relief with the local anesthesia Coding - Glenohumeral/Tronchanteric Bursa/Intraarticular Procedure code (CPT) selection complete Results Reviewed Results Reviewed: X-rays of the left shoulder obtained in the office today and reviewed by me show subchondral sclerosis along the acromion and greater tuberosity significant for impingement type syndrome Assessment & Plan Assessment & Plan (1) Painful arc syndrome of left shoulder: Code(s): M75.102 - Unspecified rotator cuff tear or rupture of left shoulder, not specified as traumatic Category: Medical (2) Tendinitis of right rotator cuff: Code(s): M75.81 - Other shoulder lesions, right shoulder Category: Medical Plan Patient has failed physical therapy and continues to have discomfort with daily activities and overhead reaching/lifting. I did offer him a steroid injection of the left shoulder to help with his discomfort which she did consent to and tolerated well. I also ordered an MRI of the left shoulder given his significant limitations and ongoing discomfort. Once the scan is complete I will discuss the next step in his treatment. Orders: Orders XR shoulder LT min 2V Today M25.512 - Pain in left shoulder MR shoulder LT wo con Today S46.009A - Unspecified injury of muscle(s) and tend on(s) of the rotator cuff of unspecified shoulder, initial encounter Coding Level of Care Code Est Pt Level 3 (40840) Complex visit Add On G2211 Diagnoses Painful arc syndrome of left shoulder M75.102 Tendinitis of right rotator cuff M75.81 CPT Codes Coding - Joint 7: 29894 - Glenohumeral/Tronchanteric Bursa/Intraarticular ([id number])
[2025-04-16 08:31] VITALS: BMI 28.5
== END 2025-04-16 09:55 | disposition home or self-care (01) ==
LOC: HO.HOS 08:22
PROVIDERS: PCP Family Medicine; Visit Provider Physician Assistant
DX: M75.102 Unspecified rotator cuff tear or rupture of left shoulder, not specified as traumatic (principal); M75.81 Other shoulder lesions, right shoulder
CPT/HCPCS: 20610

== ENCOUNTER 2025-04-16 08:22 | Outpatient (REF) | payer OTHER, SELFPAY ==
--- NOTE | ~2025-04-16 | XR_ITS ---
EXAMINATION: XR SHOULDER, LEFT CLINICAL INFORMATION: M25.512 - Pain in left shoulder COMPARISON: January 25, 2023 TECHNIQUE: AP external rotation, Grashey, scapular Y, and axillary views of the left shoulder. FINDINGS: Metallic chains overlapping the left side of the hemithorax. Mild sclerosis along the articular surface of the glenohumeral joint and acromioclavicular joint. No acute cortical disruption or malalignment. No lytic or blastic lesions. No soft tissue calcifications. XR/XR shoulder LT min 2V IMPRESSION: Mild degenerative changes without acute fracture or dislocation. No gross change. Electronically signed by: Anshul Joseph MD 04/16/2025 08:36 AM EST
== END 2025-04-16 08:23 | disposition home or self-care (01) ==
LOC: HO.HOSX 08:22
PROVIDERS: Visit Provider Physician Assistant
DX: M75.102 Unspecified rotator cuff tear or rupture of left shoulder, not specified as traumatic (principal); M75.81 Other shoulder lesions, right shoulder
CPT/HCPCS: 73030

== ENCOUNTER → 2025-04-16 08:23 | Outpatient (BNV) | payer OTHER, SELFPAY | PROVIDERS: Visit Provider Radiology Diagnostic Radiology | DX: M19.012 Primary osteoarthritis, left shoulder (principal) | CPT/HCPCS: 73030 ==